=== PATIENT | female | born 1960 | race Caucasian/White ===

== ENCOUNTER 2017-04-20 21:03 | Inpatient (IN) ==
[~2017-04-20 21:03] MED LIST: *HR* Rocuronium Bromide 100 MG/10 ML VIAL IVC ONE
[2017-04-20] MEDS ORDERED: 0.9 % Sodium Chloride 1,000 ML IVC ONE (21:09)
[2017-04-20] MEDS ORDERED: *HR* Etomidate 20 MG/10 ML AMPUL IVP ONE (21:22)
[2017-04-20] MEDS ORDERED: *HR* Rocuronium Bromide 50 MG/5 ML VIAL IVP ONE (21:23)
[2017-04-20 21:41] LABS: Hematocrit 39.5 % (35.3-44.9); Hemoglobin 11.6 g/dL (11.5-15.4); Mean Corpuscular HGB Conc 29.4 g/dL (31.6-35.5); Mean Corpuscular Hemoglobin 28.6 pg (28.0-33.3); Mean Corpuscular Volume 97.3 fL (83.0-100.0); Mean Platelet Volume 12.6 fL (9.4-12.4); Platelet Count 257 K/mcL (140-400); Red Blood Count 4.06 M/mcL (3.82-4.97)
[2017-04-20 21:46] LABS: VBG HCO3 19 mEq/L (21-27); VBG PCO2 109 mmHg (41-51); VBG PH 6.85 pH Units (7.32-7.42); VBG PO2 101 mmHg (25-50)
[2017-04-20 21:49] LABS: INR 1.1; Prothrombin Time 11.3 Seconds (9.4-12.1)
[2017-04-20 21:53] LABS: Bilirubin,Urine Negative (Negative); Blood,Urine Negative (Negative); Clarity,Urine Clear (Clear); Color,Urine Yellow (Yellow); Glucose,Urine (UA) Normal (Normal); Ketones,Urine Negative (Negative); Leukocyte Esterase,Urine Negative (Negative); Nitrite,Urine Negative (Negative); PH,Urine 6.5 pH Units (5.0-8.0); Protein,Urine 30 mg/dL (Neg-Trace); Specific Gravity,Urine 1.019 (1.010-1.025); Urobilinogen,Urine Normal (Normal)
[2017-04-20 21:55] LABS: Amphetamine Screen,Urine Negative ng/mL (Cutoff=1000); Barbiturate Screen,Urine Negative ng/mL (Cutoff=200); Benzodiazepines Screen,Urine Negative ng/mL (Cutoff=200); Cannabinoid Screen,Urine Positive ng/mL (Cutoff = 50); Cocaine Screen,Urine Negative ng/mL (Cutoff= 300); Opiate Screen,Urine Positive ng/mL (Cutoff=300); Phencyclidine Screen,Urine Negative ng/mL (Cutoff=25)
[2017-04-20 21:56] LABS: Bacteria,Urine None Seen per hpf (None-Few); Hyaline Casts,Urine None Seen per lpf (None-Few); Squamous Epithelial Cell,Urine Many per lpf (None-Few); WBC,Urine 0-3 per hpf (0-3)
[2017-04-20 22:00] LABS: Alanine Aminotransferase 24 Units/L (7-52); Albumin 4.2 g/dL (3.5-5.7); Albumin/Globulin Ratio 1.6 (1.1-2.2); Alkaline Phosphatase 128 Units/L (34-104); Aspartate Amino Transferase 48 Units/L (13-39); BUN/Creatinine Ratio 19 (6-26); Bilirubin,Indirect 0.4 mg/dL (0.0-1.2); Bilirubin,Total 0.4 mg/dL (0.3-1.0); Blood Urea Nitrogen 20 mg/dL (6-20); Calcium 8.9 mg/dL (8.6-10.3); Carbon Dioxide 20 mEq/L (23-29); Chloride 102 mEq/L (98-107); Globulin 2.7 g/dL (2.4-3.5); Glucose 460 mg/dL (70-105); Lymphocytes # 9.7 K/mcL (0.6-4.6); Monocytes # 0.7 K/mcL (0.0-1.3); Neutrophils # 7.2 K/mcL (1.6-8.9); Osmolality,Calculated 303 (280-300); Potassium 4.7 mEq/L (3.5-5.1); Sodium 135 mEq/L (136-145); Total Protein 6.9 g/dL (6.4-8.9); eGFR For African Americans > 60 (> 60); eGFR For Non-African Americans 54 (> 60)
[2017-04-20] MEDS: FentaNYL (PF) 1,000 MCG in 0.9 % Sodium Chloride 80 ML IVC SCH (22:00)
[2017-04-20 22:01] LABS: Creatine Kinase 63 Units/L (30-223); Large Platelets Present (Not Present); Platelet Estimate Normal (Normal); Reactive Lymphocytes Present (Not Present)
[2017-04-20 22:06] LABS: Ethanol < 10 mg/dL (0-10)
[2017-04-20 22:30] LABS: ABG Base Excess -10 mEq/L (-2 to 3); ABG HCO3 23 mEq/L (21-27); ABG Oxygen Saturation 100 % (95-98); ABG PCO2 89 mmHg (35-45); ABG PH 7.02 pH Units (7.32-7.45); ABG PO2 332 mmHg (85-104); ABG TCO2 26 mEq/L (20-26)
[2017-04-20] MEDS ORDERED: Furosemide 40 MG/4 ML VIAL IVP ONE (23:08)
--- NOTE | 2017-04-20 23:08 | Emergency Department Note ---
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 Units/L ALT (7-52) Units/L Alkaline Phosphatase (34-104) Units/L Ammonia (16-53) mcmol/L Creatine Kinase (30-223) Units/L Troponin I (< 0.04) ng/mL B-Natriuretic Peptide (Less than 100) pg/mL Serum Total Protein (6.4-8.9) g/dL Albumin (3.5-5.7) g/dL Globulin (2.4-3.5) g/dL Albumin/Globulin Ratio (1.1-2.2) Beta-Hydroxybutyric Acd (0.02-0.27) mmol/L Urine Color (Yellow) Urine Clarity (Clear) Urine pH (5.0-8.0) pH Units Ur Specific [place] (1.010-1.025) Urine Protein (Neg-Trace) mg/dL Urine Glucose (UA) (Normal) mg/dL Urine Ketones (Negative) mg/dL Urine Blood (Negative) Urine Nitrite (Negative) Urine Bilirubin (Negative) Urine Urobilinogen (Normal) mg/dL Ur Leukocyte Esterase (Negative) Urine Microscopic RBC (0-3) per hpf Urine Microscopic WBC (0-3) per hpf Ur Squamous Epith Cells (None-Few) per lpf Urine Bacteria (None-Few) per hpf Hyaline Casts (None-Few) per lpf Ur Culture Indicated? (NO) Urine Opiates Screen (Llnazw=201) ng/mL Ur Barbiturates Screen (Vlnahs=533) ng/mL Ur Phencyclidine Scrn (Cutoff=25) ng/mL Ur Amphetamines Screen (Kifgud=7624) ng/mL U Benzodiazepines Scrn (Dtlcxw=463) ng/mL Urine Cocaine Screen (Cutoff= 300) ng/mL U Marijuana (THC) Screen (Cutoff = 50) ng/mL Ethyl Alcohol (0-10) mg/dL Person Notif of Satish CHING - Radiology Data Radiology results reviewed: Yes I reviewed the patient's radiology results. - EKG Data EKG #1 EKG attestation: Yes I reviewed and interpreted this EKG. EKG results narrative: EKG done at 2118 reviewed by myself and the attending shows sinus tachycardia at a rate of 132, CO 177, QRS 96, QTc 633 with a leftward axis. There is ST elevation with no tombstone being on leads V3 V4 and V5. There are no other reciprocal changes. There are deep Q waves most likely for an old LA. There is no acute T-wave changes. No signs of any heart strain or hypertrophy or any heart blocks. No signs of WPW/Brugada syndrome. There was no old EKG to compare with at this time. Critical Care Time Critical Care Time: Yes Total Critical Care Time: 60 Attestation: Critical care performed: Time is exclusive of separately billable procedures. Time includes: direct patient care, patient reassessment, coordination of patient care, interpretation of data (laboratory data, radiology data, and respiratory data), review of patient's medical records, medical consultation and documentation of patient care. Procedures included in critical care time: Procedures excluded from critical care time: Endotracheal intubation S.B.AGato. - Tanmay Situation: Demographics, MOA Background: Presenting Complaint, Relevant PMH, Meds, & Allergies Assessment: Vital Signs, Course and respsone to treatment, Exam Concerns, Patient/Family Expectation, Pertinant Lab Results, Outstanding Labs Recommendation: Barrier(s) to disposition, Recommendation based on pending studies, treatments, or consults S.BFabián Report Given to: , hospitalist Tanmay Repor Time: 23:35 Attestation Statement - Attestation Attestation: I, Maury Calderon MD, personally evaluated this patient and discussed their management with the resident physician. I reviewed the resident's note and agree with the documented findings, medical decision making, and plan of care. 56-year-old female presents to the emergency department by ambulance for acute onset of respiratory distress which started about 20:15 this evening shortly after patient went to bed. reports that patient was fine all day and did not have any complaints. She went to bed about 8 PM and then about a 15- year-old for him and complained that she could not get her breath. She did not complain of any chest pain. She has no prior history of any known breathing problems. No prior history of any known heart problems. EMS reports that when they arrived the patient was on her knees leaning forward over the bed complaining that she could not get her breath. Oxygen saturation was initially in the low 80s. She was placed on a nonrebreather and received a nebulizer treatment in route. She also became progressively less alert and on arrival here the patient is moaning and grunting and does not respond to verbal stimuli or follow commands. On examination patient is a well-developed well-nourished female in severe respiratory distress. She is alert but not responsive to verbal stimuli. Breath sounds are equal bilaterally with some coarse rales bilaterally and scattered bilateral expiratory wheezes but with good air movement. Heart is tachycardic and regular. Abdomen is soft with normal bowel sounds and no obvious distention. No pedal edema noted. Patient was intubated orally by Dr. Small without difficulty. Labs reviewed. Leukocytosis with no left shift. Elevated d-dimer. Troponin 0.06. VBG pH was 6.85. ABG obtained after intubation showed a pH of 7.02. CTA of the chest showed no pulmonary embolism. CHF with small pleural effusions. EKG showed anterior ST elevations in V3 V4 and V5. This was reviewed by the assistant boys track coach, Dr. Bhakta, and he felt that with deep Q waves present these were likely old changes from a previous LA. He recommended medical management at this point. (A STEMI alert was initially called based on the EMS transmitted EKG however after the EKG was reviewed by Dr. Bhakta the STEMI alert was canceled.) The hospitalist, Dr. Aldrich, was consulted and accepted admission of the patient to the ICU.
--- NOTE | 2017-04-20 23:45 | Internal Med History&Physical ---
<Dwayne Navarrete - Last Filed: 04/21/17 02:37> Date of Encounter: 04/21/17 Time of Encounter: 23:41 Assessment and Plan (1) Acute respiratory failure with hypoxia Current visit: Yes Status: Acute Patient was intubated in emergency department. Patient is currently on ARDS Net settings with a PEEP of 15. She is on 6 mL/kg tidal volumes. The patient is currently sedated using fentanyl. We will perform sputum culture on patient. We will continue to monitor patient's respiratory status. (2) Acute respiratory acidosis Current visit: Yes Status: Acute Continued improvement of respiratory status according to ABG versus VBG obtained once patient was intubated. Patient was initially 6.85 which is improved to 7.02. There is likely some component of metabolic acidosis associated with lactic acid elevation. Patient will be continued to be intubated with respiratory monitoring. (3) Acute CHF Current visit: Yes Status: Acute Patient has no previous history of congestive heart failure. The patient has bilateral pleural effusions consistent with pulmonary edema. Bedside ultrasound reveals hyperkinetic heart beat. We will obtain formal echocardiogram for further evaluation of cardiac status. Patient was administered 1 dose of diuretic in the emergency department to attempt to diurese intrapulmonary fluid. Patient has been tolerating diuresis. Patient's blood pressures have remained stable without any demonstration of hypotension. Patient remains tachycardic which is likely associated with depletion of intravascular fluids. We will continue IV maintenance fluids without bolus to prevent worsening of pulmonary edema. Patient is currently on 15 mm of PEEP. We will place a cardiology consult to be seen. Qualifiers: Congestive heart failure type: combined Qualified Code(s): I50.41 - Acute combined systolic (congestive) and diastolic (congestive) heart failure (4) Hypotension Current visit: Yes Status: Acute The patient became hypotensive in the ICU. A right femoral CVC was placed. The patient was started on phenylephrine initially which was changed to norepinephrine subsequently. Titration orders in place. The patient was also administered IV fluids to help supplement what appears to be intravascular depletion noted on bedside ultrasound of the IVC. The patient received IV fluid bolus followed by maintenance fluids. The patient's PEEP was subsequently lowered as well to 10. Qualifiers: Hypotension type: unspecified hypotension type Qualified Code(s): I95.9 - Hypotension, unspecified (5) Pulmonary edema Current visit: Yes Status: Acute Qualifiers: Chronicity: acute Qualified Code(s): J81.0 - Acute pulmonary edema (6) Tachycardia Current visit: Yes Status: Acute Tachycardia likely associated with intravascular depletion of fluid. We will continue IV maintenance fluids. She will be continued on PEEP of 15. We will begin the patient on levofloxacin and vancomycin as a prophylaxis. Sputum culture was obtained, Streptococcus and Legionella antigen were obtained , flu swab also obtained. (7) Altered mental status Current visit: Yes Status: Acute Qualifiers: Altered mental status type: stupor Qualified Code(s): R40.1 - Stupor (8) Lactic acid acidosis Current visit: Yes Status: Acute (9) Hyperglycemia Current visit: Yes Status: Acute Patient is an over previous history of diabetes. This is likely reactionary associated with illness. The patient is acidotic but diminished no ketones. Internal Medicine - H&P: HPI Chief complaint: Respiratory distress Admitted From: Home Plans for Post Hospital Care: Home History of present illness: Ms. 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 emergency department after the patient began experiencing difficulty breathing. According to the history from the the patient went to bed at roughly 8 PM this evening she awoke at roughly 8:15 820 stating that she could not catch her breath. The patient states that she was on the ground having difficulty breathing. EMS was notified at that time. EMS arrived to the emergency department stating that the patient had initial O2 saturation of 80% on room air. She was placed on 15 L nonrebreather. She quickly jake to the mid 90s. Upon arrival to the emergency department the physician noted that the patient was only responsive to pain stimuli. The patient was not following any commands. In addition her pulse oximetry was not improving. The patient also was tachycardic. It was elected at that time that the patient was intubated. Labs were drawn and the patient was taken to CT scan. Labs demonstrated an elevated d-dimer so a CTA of the patient's chest as well as a CT abdomen and pelvis was obtained. CTA of the patient's chest demonstrated bilateral pleural effusions consistent with edema. No other gross abnormality noted. Please see note from radiologist for impression and results of CT scan with further detail. The patient remained slightly tachycardic and blood pressure remained stable. After talking to the patient's he states that the patient has had some intermittent cough and dyspnea over the course the past month which they attributed to an upper respiratory infection. The patient has had no recent fevers, recent illness other than mentioned previously, or any other complaints over the course of the past month. The patient was noted to have some intermittent chest pain over the course of the past few weeks as well. The states that the patient has no previous history of CA or cardiac disease. In addition upon arrival to the emergency Department EKG was noted for concern for possible STEMI. A STEMI alert was called and after emergency department physician spoke with interventional cardiology, they did not feel as though this was an acute CA. They felt that the patient had large Q waves associated with previous CA. They recommended medical management at this time. The patient's troponin was mildly elevated at 0.06. The patient is currently on the ventilator on ARDS Net settings. 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 in bilateral upper extremities on the anterior aspect of the forearm.) - Social History Smoking Status: Current every day smoker Smokeless Tobacco Status: No Alcohol use: none Drug use: none Current living situation: Home, With Family Activity Level: Independent ambulation Recent Out of Country Travel Within the Last 8 Weeks: No Internal Medicine - H&P: Meds Carbidopa/Levodopa [Carbidopa-Levodopa 10-100 Tab] 1 tab PO TID 04/20/17 [ History] Gabapentin [Neurontin] 1,200 mg PO TID 04/20/17 [History] Nicotine Patch [Nicoderm] 21 mg TD DAILY 04/20/17 [History] Omeprazole [PriLOSEC] 20 mg PO DAILY 04/20/17 [History] OxyCODONE Immed Rel [Roxicodone 10 MG] 10 mg PO TID PRN 04/20/17 [History] 3 Allergy/AdvReac Type Severity Reaction Status Date / Time No Known Allergies Allergy Verified 01/29/15 08:11 ROS unobtainable: due to endotracheal tube All Systems PM: A 10-system review of systems was performed and is negative for pertinent findings except as documented above in the HPI. - Constitutional Vitals: Temp Pulse Resp BP Pulse Ox 99.4 F 128 20 108/71 96 04/20/17 21:06 04/20/17 23:28 04/20/17 23:28 04/20/17 23:28 04/20/17 23:28 Exam: Patient is intubated and sedated at this time. - Head Head exam: Present: atraumatic, normocephalic - Eye Eye exam: Present: PERRL. Absent: sclera anicteric - ENT ENT exam: Present: mucous membranes moist - Neck Neck exam general surgery: Present: normal inspection, trachea midline. Absent : lymphadenopathy - Respiratory Additional comments: Course breath sounds bilaterally. Mild rales noted in bilateral lower lobes. - Cardiovascular Cardiovascular exam: Present: +S1, +S2, tachycardia. Absent: clicks, gallop, rubs - GI/Abdominal GI/Abdominal exam: Present: soft. Absent: distended, firm, mass, pulsatile mass , rigid - Extremities Exam Extremities exam: Present: warm, radial pulses palpable and symmetrical. Absent : calf tenderness, cyanotic, pedal edema Additional comments: Skin grafts noted bilateral anterior forearms. Well-healed. No gross abnormality. - Neurological Exam Additional comments: Patient is currently intubated and sedated. - Skin Skin exam: Present: dry, intact Internal Med - H&P Results - Labs CBC & Chem 7: 04/20/17 21:30 04/20/17 21:30 Labs: Short CBC 04/20/17 Range/Units 21:30 WBC 18.0 H (4.3-11.1) K/mcL Hgb 11.6 (11.5-15.4) g/dL Hct 39.5 (35.3-44.9) % Plt Count 257 (140-400) K/mcL Neutrophils # 7.2 (1.6-8.9) K/mcL BMP 04/20/17 21:30 Sodium 135 L Potassium 4.7 Chloride 102 Carbon Dioxide 20 L BUN 20 Creatinine 1.05 Glucose 460 H Calcium 8.9 Cardiac Enzymes 04/20/17 Range/Units 21:30 Troponin I 0.06 H* (< 0.04) ng/mL Liver Function 04/20/17 Range/Units 21:30 Total Bilirubin 0.4 (0.3-1.0) mg/dL Direct Bilirubin 0.0 (0.0-0.2) mg/dL AST 48 H (13-39) Units/L ALT 24 (7-52) Units/L Alkaline Phosphatase 128 H (34-104) Units/L Albumin 4.2 (3.5-5.7) g/dL Urine 04/20/17 Range/Units 21:43 Urine Color Yellow (Yellow) Urine Clarity Clear (Clear) Urine pH 6.5 (5.0-8.0) pH Units Ur Specific [place] 1.019 (1.010-1.025) Urine Protein 30 H (Neg-Trace) mg/dL Urine Glucose (UA) Normal (Normal) mg/dL - ABG Interpretation ABG results: 04/20/17 04/20/17 21:41 22:18 ABG pH 7.02 L* ABG pCO2 89 H* ABG pO2 332 H ABG HCO3 23 ABG Total CO2 26 ABG O2 Saturation 100 H ABG Base Excess -10 L VBG pH 6.85 L* VBG pCO2 109 H* VBG pO2 101 H VBG HCO3 19 L Interpretation: respiratory acidosis - Impressions ITS Impressions Chest X-Ray 04/20/17 21:09 IMPRESSION: 1. Endotracheal tube present with tip projecting 7 cm from the steve. Recommend retraction by approximately 1.5 cm. 2. Cardiomegaly with central pulmonary vascular congestion and bilateral interstitial opacities likely reflecting edema. D/ / Yash Mcmillan MD / Yash Mcmillan MD Interpreting Provider: Yash Mcmillan MD Head CT 04/20/17 21:10 IMPRESSION: No acute intracranial abnormality. D/ / Woo Goodman MD / Woo Goodman MD Interpreting Provider: Woo Goodman MD Chest CTA 04/20/17 21:14 IMPRESSION: 1. No evidence of pulmonary embolic disease. 2. Findings most consistent with CHF and interstitial pulmonary edema with small bilateral effusions, interlobular septal thickening and patchy ground-glass opacification throughout the lungs. Cardiomegaly with atherosclerotic calcification in the coronary circulation. 3. Bibasilar atelectasis. 4. Nonspecific periportal edema. This can be seen with resuscitation and CHF. 5. Striated nephrogram bilaterally, most often associated with ATN. No obstruction. 6. No evidence of bowel obstruction. Moderate colonic distention proximally with retained stool. D/ / 04/20/2017 22:55:23 Emanuel Barnes MD / gemini Interpreting Provider: Emanuel Barnes MD Abdomen/Pelvis CT 04/20/17 21:50 IMPRESSION: 1. No evidence of pulmonary embolic disease. 2. Findings most consistent with CHF and interstitial pulmonary edema with small bilateral effusions, interlobular septal thickening and patchy ground-glass opacification throughout the lungs. Cardiomegaly with atherosclerotic calcification in the coronary circulation. 3. Bibasilar atelectasis. 4. Nonspecific periportal edema. This can be seen with resuscitation and CHF. 5. Striated nephrogram bilaterally, most often associated with ATN. No obstruction. 6. No evidence of bowel obstruction. Moderate colonic distention proximally with retained stool. D/ / 04/20/2017 22:55:23 Emanuel Barnes MD / gemini Interpreting Provider: Emanuel Barnes MD - Attending Attestation I examined this patient and my medical decision-making was reviewed with the Resident Physician. I agree with the documented findings, disposition and treatment plan as described except to the extent set forth below. <To Renteria - Last Filed: 04/21/17 03:55> Date of Encounter: 04/21/17 Time of Encounter: 02:00 ROS unobtainable: due to endotracheal tube - Constitutional Vitals: Temp Pulse Resp BP Pulse Ox 97.9 F 107 17 105/77 100 04/21/17 01:00 04/21/17 03:00 04/21/17 03:00 04/21/17 03:00 04/21/17 03:00 Exam: Intubated and sedated; arousable and pulling at tubes/lines when sedation wears off; patient follows commands when off sedation - Head Head exam: Present: atraumatic - Eye Eye exam: Present: PERRL. Absent: scleral icterus - ENT ENT exam: Present: mucous membranes moist, normal exam Additional comments: ETT in place - Neck Neck exam general surgery: Present: full ROM, normal inspection, supple - Respiratory Respiratory exam: Present: prolonged expiratory phase, respiratory distress, rhonchi, wheezes, tachypnea. Absent: chest wall tenderness - Cardiovascular Cardiovascular exam: Present: distant heart sounds, RRR, +S1, +S2, tachycardia. Absent: diastolic murmur, JVD, systolic murmur - GI/Abdominal GI/Abdominal exam: Present: soft. Absent: guarding, hepatomegaly, mass, splenomegaly, tenderness - Extremities Exam Extremities exam: Present: full ROM, warm. Absent: calf tenderness, cyanotic, pedal edema, tenderness - Neurological Exam Additional comments: sedated; responds appropriately once sedation wears off - Skin Skin exam: Present: dry, warm. Absent: rash Internal Med - H&P Results - Labs CBC & Chem 7: 04/20/17 21:30 04/20/17 21:30 - ABG Interpretation Interpretation: ABG interpreted by me Interpretation: respiratory acidosis - Diagnostic Studies Chest x-ray Status: image reviewed by me (cardiomegaly and diffuse pulmonary edema noted) - Attending Attestation I discussed the patient VENETIE IRA, PMH, ROS, lab data, and exam findings with Dr. Navarrete. I then saw and examined patient independently as well. Patient remains critically ill. Upon initial review of her labs and history, I was concerned about pneumonia with sepsis. However, after examining patient, viewing her CXR, and again reviewing her labs, I agree with Dr. Navarrete that patient likely has acute CHF with resultant respiratory failure. Nonetheless, we will treat her for possible pneumonia with IV antibiotics, blood cultures, and mechanical ventilation. She initially received IVF for BP support, but I suspect her hypotension was secondary to IV sedation. Once patient was more awake, her BP normalized. Repeat lactate was normal. We will try to diurese her now that BP is stabilized. Formal ECHO will be performed this morning and cardiology will be consulted as well as Pulmonary for ICU management. In addition to diuresis, IV antibiotics, and mechanical ventilation, we will support her with nebulized breathing treatments and IV steroids. Given her ability to oxygenate easily and elevated PO2 on ABG, I am not convinced she has ARDS. However, she could easily go into ARDS given her acute respiratory process. We will treat with antibiotics for possible pneumonia and we'll check for influenza as well. Patient remains critically ill and will need ongoing critical care support as noted above. A total of 55 minutes critical care time thus far assessing patient, coordinating care with Dr. Navarreet, reviewing labs, X-rays, and medical decision making. Other than my comments above and noted exam findings, I agree with Dr. Navarrete's assessment and plan.
[2017-04-21] MEDS ORDERED: *HR* Midazolam HCl 2 MG/2 ML VIAL IVP ONE (00:24)
[2017-04-21] MEDS ORDERED: *HR* Midazolam HCl 2 MG/2 ML VIAL ONE (00:25)
[2017-04-21] MEDS ORDERED: Dexmedetomidine HCl 400 MCG/100 ML MLS IVC ONE (01:02)
[2017-04-21] MEDS ORDERED: D5% in Water 1,000 ML IVC PRN (01:06)
[2017-04-21] MEDS ORDERED: *HR* Dextrose 50 % in Water (Syg) 50 ML SYRINGE IVP PRN (01:06)
[2017-04-21] MEDS ORDERED: Dextrose Gel 15 GM/37.5 ML TUBE PO PRN ×2 (01:06)
[2017-04-21] MEDS: Dexmedetomidine HCl 400 MCG/100 ML MLS IVC SCH ×3 (01:10→22:19)
[2017-04-21] MEDS ORDERED: 0.9 % Sodium Chloride 500 ML IVC ONE (01:16)
[2017-04-21] MEDS ORDERED: Phenylephrine 10 MG in D5% in Water 250 ML IVC SCH (01:30)
[2017-04-21] MEDS: 0.9 % Sodium Chloride 1,000 ML IVC SCH ×2 (02:30→05:37)
[2017-04-21] MEDS ORDERED: Vancomycin 1,000 MG in D5% in Water 250 ML IVPB ONE (02:34)
[2017-04-21] MEDS ORDERED: Potassium Chloride 40 MEQ/200 ML BAG IVPB PRN (02:35)
--- NOTE | 2017-04-21 02:43 | Procedure Note ---
<Dwayne Navarrete - Last Filed: 04/21/17 02:40> Date of procedure: 04/21/17 Pre-op diagnosis: Hypotension Post-op diagnosis: same Procedure: Right femoral CVC: The patient was positioned in correct fashion. The patient was cleaned using ChloraPrep. Patient was draped in normal fashion. Under ultrasound guidance a right femoral CVC was placed. This was a triple lumen. Wire was visualized with in vein. CBC catheter was placed without difficulty. All 3 lines were flushed and were able to draw blood. Central line was sutured in place with Biopatch. Dressing placed and dated. Patient tolerated procedure well. 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 He was able to successfully aspirate and canulate the femoral vein on the first attempt.
[2017-04-21] MEDS: Norepinephrine 4 MG in D5% in Water 250 ML IVC SCH ×2 (03:20→10:26)
[2017-04-21 03:55] LABS: Basophils # 0.1 K/mcL (0.0-0.2); Basophils % 0.2 %; Hematocrit 35.1 % (35.3-44.9); Immature Granulocytes % 0.6 % (0-4); Immature Platelets 9.2 % (1.1-6.1); Lymphocytes # 0.5 K/mcL (0.6-4.6); Lymphocytes % 2.6 %; Mean Corpuscular HGB Conc 31.3 g/dL (31.6-35.5); Mean Corpuscular Hemoglobin 29.1 pg (28.0-33.3); Mean Corpuscular Volume 92.9 fL (83.0-100.0); Mean Platelet Volume 11.1 fL (9.4-12.4); Monocytes # 1.5 K/mcL (0.0-1.3); Monocytes % 7.6 %; Neutrophils # 17.8 K/mcL (1.6-8.9); Platelet Count 235 K/mcL (140-400); Red Blood Count 3.78 M/mcL (3.82-4.97); Red Cell Distribution Width 14.5 % (11.5-14.5)
[2017-04-21 04:12] LABS: Calcium 7.8 mg/dL (8.6-10.3); Potassium 4.5 mEq/L (3.5-5.1)
[2017-04-21 04:27] LABS: ABG Base Excess 1 mEq/L (-2 to 3); ABG HCO3 26 mEq/L (21-27); ABG Oxygen Saturation 99 % (95-98); ABG PCO2 45 mmHg (35-45); ABG PH 7.38 pH Units (7.32-7.45); ABG PO2 129 mmHg (85-104); ABG TCO2 28 mEq/L (20-26); Blood Gas Modality PRVC; Blood Gas PEEP 10 cm H2O; Blood Gas Respiration Rate 16; Blood Gas VT 380 cc
[2017-04-21 04:33] LABS: 2009 H1N1 PCR NOT DETECTED (Not Detect); Influenza A PCR Negative (Negative); Influenza B PCR Negative (Negative)
[2017-04-21] MEDS ORDERED: *HR* Heparin 5,000 UNIT/ML VIAL IVP ONE (04:54)
[2017-04-21] MEDS ORDERED: *HR* Heparin 5,000 UNIT/ML VIAL IVP PRN ×2 (04:54)
[2017-04-21] MEDS ORDERED: Heparin 25,000 UNIT/500 ML D5W 25,000 UNIT/500 ML BAG IVC SCH (05:00)
[2017-04-21 05:08] LABS: Magnesium 2.1 mg/dL (1.6-2.6)
[2017-04-21 05:26] LABS: INR 1.1; Prothrombin Time 12.2 Seconds (9.4-12.1)
[2017-04-21 05:29] LABS: Activated Partial Thrombo Time 25.9 Seconds (26.0-36.0)
[2017-04-21] MEDS: Insulin LISPRO 300 UNITS/3 ML VIAL SQ SCH ×4 (05:59→23:50)
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
[2017-04-21] MEDS: Levofloxacin 750 MG/150 ML 750 MG/150 ML BAG IVPB SCH (08:38)
[2017-04-21] MEDS: methylPREDNISolone 125 MG/2 ML VIAL IVP SCH ×3 (08:38→23:49)
[2017-04-21] MEDS ORDERED: Perflutren Lipid Microsphere 1.3 ML in 0.9 % Sodium Chloride 8.7 ML IVP ONE (10:26)
--- NOTE | 2017-04-21 10:43 | Cardiology Consult Note ---
Date of Encounter: 04/21/17 Time of Encounter: 10:41 Assessment and Plan (1) CHF (congestive heart failure) Current Visit: Yes Status: Acute Patient's electrocardiogram reveals an age indeterminate myocardial infarction as the patient has deep Q waves in the anteroseptal leads. The patient has had worsening shortness of breath over the last few weeks, so I suspect that the myocardial infarction occurred within the last month. The patient's echocardiogram reveals a reduced left ventricular ejection fraction 25%. There is decreased systolic function. CTA of the chest reveals bilateral pleural effusions. Patient is currently intubated. Lung exam reveals bilateral rhonchi. Initial troponin was 0.06. Repeat troponin is 0.86. The patient does have a BNP of 3472. No known previous history of congestive heart failure. Currently, we will plan to proceed with heart catheterization tomorrow as we want this patient's pulmonary function to be optimized. Patient was diuresed with 40 mg of Lasix. Patient will be given Brilinta. Plan was discussed with at bedside as well as patient. Qualifiers: Congestive heart failure type: systolic Congestive heart failure chronicity : acute Qualified Code(s): I50.21 - Acute systolic (congestive) heart failure (2) Elevated troponin Current Visit: Yes Status: Acute Patient is currently on dual antiplatelet therapy and on low-dose heparin via ACS protocol. Heart catheterization tomorrow. (3) Myocardial infarction Current Visit: Yes Status: Acute Age indeterminate myocardial infarction. See above Qualifiers: Discussion w patient/family: The assessment and plan as outlined above was discussed with the patient and/or family members who expressed understanding and agreement. All questions were answered. Thank you for involving us in the care of your patient. Please call with any questions. History of Present Illness Consult date: 04/21/17 Requesting physician: Dwayne Navarrete Chief complaint: PACO History of present illness: Ms. Humphrey is a 56 year old female past medical history of smoking who presented to the emergency department last night after having shortness of breath. She was taken to the emergency department via EMS and oxygen saturation was in the 80s. Patient's reports that patient has been getting more short of breath on exertion over the last few weeks. He has noticed that she is more short of breath when lying flat. Patient did complain of one episode of chest pain last night per her , but patient states that she has not had any chest pain. This was corrected by placing patient on a nonrebreather. There was concern for patient to not be responsive to painful stimuli, so the decision to place the endotracheal tube was made. Patient's initial blood gas revealed hypercarbic respiratory acidosis. Patient received a CTA of the chest which revealed bilateral pleural effusions. Chest x-ray revealed cardiomegaly. Review of systems was limited as patient cannot conversate as she currently has an endotracheal tube placed. Past Med Surg Social Fam HX - Past Medical History Medical history: GERD, other Psychiatric history: no psych history - Past Surgical History Surgical History: other - Social History Smoking Status: Current every day smoker Smokeless Tobacco Status: No Alcohol use: none Drug use: none Medications and Allergies Carbidopa/Levodopa [Carbidopa-Levodopa 10-100 Tab] 1 tab PO TID 04/20/17 [ History] Gabapentin [Neurontin] 1,200 mg PO TID 04/20/17 [History] Nicotine Patch [Nicoderm] 21 mg TD DAILY 04/20/17 [History] Omeprazole [PriLOSEC] 20 mg PO DAILY 04/20/17 [History] OxyCODONE Immed Rel [Roxicodone 10 MG] 10 mg PO TID PRN 04/20/17 [History] 3 Allergy/AdvReac Type Severity Reaction Status Date / Time No Known Allergies Allergy Verified 01/29/15 08:11 ROS unobtainable: due to endotracheal tube All Systems Review: A 10-system review of systems was performed and is negative for pertinent findings except as documented above in the HPI. - Constitutional Constitutional: no fever(s) - Cardiovascular Cardiovascular: chest pain at rest, dyspnea at rest, dyspnea on exertion, orthopnea, paroxysmal nocturnal dyspnea, no leg edema - Respiratory Respiratory: dyspnea, no cough, no hemoptysis - Gastrointestinal Gastrointestinal: no abdominal pain, no coffee ground emesis, no hematemesis, no hematochezia - Integumentary Integumentary: no rash - Hematological/Lymphatic Hematologic/Lymphatic: no easy bleeding Physical Examination Vital Signs, Last 4 Hours Temp Pulse Resp BP Pulse Ox 04/21/17 10:00 82 18 92/80 100 04/21/17 09:13 78 16 84/65 100 04/21/17 08:00 97.8 F 87 16 99/58 100 04/21/17 07:41 16 100 04/21/17 07:00 86 16 94/73 100 General: No Apparent Distress, Other (Intubated but responsive and communicates with head movements. Patient is alert) HEENT: Atraumatic, Normocephaly Neck: No JVD Cardiac: Reg Rate and Rhythm, No Murmur Lungs: Other (diffuse rhonchi and rales) Neuro: Alert and responsive Abdomen: Soft Skin: No rashes noted on visualized skin Musculoskeletal: No Chest Wall Tenderness Extremities: No Edema, Normal Pulses Results 04/21/17 03:45 04/21/17 03:45 Lab Results 04/21/17 04/21/17 04/21/17 03:45 03:45 03:45 WBC 20.1 H Hgb 11.0 L Hct 35.1 L Plt Count 235 INR APTT Sodium 139 Potassium 4.5 Chloride 108 H Carbon Dioxide 25 BUN 22 H Creatinine 1.19 Glucose 109 H Calcium 7.8 L Magnesium 2.1 Troponin I 0.86 H* 04/21/17 05:10 WBC Hgb Hct Plt Count INR 1.1 APTT 25.9 L Sodium Potassium Chloride Carbon Dioxide BUN Creatinine Glucose Calcium Magnesium Troponin I Consult Discharge Plan - Plan Referrals: Griselda Richey, INSURANCE CLAIMS EXAMINER [Primary Care Provider] -
[2017-04-21] MEDS ORDERED: *HR* Ticagrelor 90 MG TABLET PO ONE (12:08)
--- NOTE | 2017-04-21 12:34 | Electrocardiograph Report ---
[address] [place], [place] [address] Test Date: 2017-04-20 Pat Name: Michelle Humphrey Department: 104 Room: [facility] Gender: F Direct Mail Manager: : 1960 Requested By: Joon Small Order Number: [id number] Reading MD: Omid Bhakta MD Measurements Intervals [place] Rate: 132 P: ND: 0 QRS: -64 QRSD: 97 T: 90 QT: 264 QTc: 342 Interpretive Statements SINUS TACHYCARDIA LEFT ANTERIOR FASCICULAR BLOCK ANTEROSEPTAL MYOCARDIAL INFARCTION, POSSIBLY ACUTE Electronically Signed On 04-21-2017 12:32:46 EST by Omid Bhakta MD
--- NOTE | 2017-04-21 13:28 | Electrocardiograph Report ---
[address] [place], [place] [address] Test Date: 2017-04-21 Pat Name: Michelle Humphrey Department: 109 Room: PSYCHIATRIC Gender: F Human Resources Professional: : 1960 Requested By: Dwayne Navarrete Order Number: [id number] Reading MD: Adry Walton Measurements Intervals [place] Rate: 90 P: 18 CT: 177 QRS: -42 QRSD: 86 T: 66 QT: 359 QTc: 406 Interpretive Statements SINUS RHYTHM WITH OCCASIONAL SUPRAVENTRICULAR PREMATURE COMPLEXES LEFT AXIS DEVIATION ANTEROSEPTAL MYOCARDIAL INFARCTION, OF INDETERMINATE AGE Electronically Signed On 04-21-2017 13:26:10 EST by Adry Walton
[2017-04-21] MEDS: Metoprolol XL (24 HR) Succ 25 MG TAB.ER.24H PO SCH (15:51)
[2017-04-21] MEDS: Furosemide 40 MG/4 ML VIAL IVP SCH (15:59)
[2017-04-21 17:15] LABS: ABG Base Excess 0 mEq/L (-2 to 3); ABG HCO3 25 mEq/L (21-27); ABG Oxygen Saturation 96 % (95-98); ABG PCO2 43 mmHg (35-45); ABG PH 7.37 pH Units (7.32-7.45); ABG PO2 86 mmHg (85-104); ABG TCO2 26 mEq/L (20-26)
[2017-04-21] MEDS: FentaNYL (PF) 1,000 MCG in 0.9 % Sodium Chloride 80 ML IVC SCH (17:58)
[2017-04-21 19:40] LABS: Activated Partial Thrombo Time 162.5 Seconds (26.0-36.0)
[2017-04-21 20:01] LABS: Heparin anti-factor XA UFH 1.06 IU/mL (0.30-0.70)
[2017-04-21] MEDS ORDERED: *HR* Ticagrelor 90 MG TABLET PO SCH (21:00)
[2017-04-22 02:48] LABS: BUN/Creatinine Ratio 22 (6-26); Blood Urea Nitrogen 22 mg/dL (6-20); Calcium 8.7 mg/dL (8.6-10.3); Carbon Dioxide 27 mEq/L (23-29); Chloride 103 mEq/L (98-107); Glucose 127 mg/dL (70-105); Osmolality,Calculated 287 (280-300); Potassium 3.8 mEq/L (3.5-5.1); Sodium 136 mEq/L (136-145); eGFR For African Americans > 60 (> 60); eGFR For Non-African Americans 56 (> 60)
[2017-04-22] MEDS: FentaNYL (PF) 1,000 MCG in 0.9 % Sodium Chloride 80 ML IVC SCH ×3 (04:01→14:03)
[2017-04-22] MEDS: Dexmedetomidine HCl 400 MCG/100 ML MLS IVC SCH ×2 (06:35→16:34)
[2017-04-22] MEDS: methylPREDNISolone 125 MG/2 ML VIAL IVP SCH (08:19)
[2017-04-22] MEDS: Metoprolol XL (24 HR) Succ 25 MG TAB.ER.24H PO SCH (08:20)
[2017-04-22] MEDS: Furosemide 40 MG/4 ML VIAL IVP SCH (08:20)
[2017-04-22] MEDS ORDERED: *HR* Midazolam HCl 2 MG/2 ML VIAL IVP PRN (08:21)
[2017-04-22] MEDS: Insulin LISPRO 300 UNITS/3 ML VIAL SQ SCH ×2 (08:24→12:16)
[2017-04-22] MEDS: Levofloxacin 750 MG/150 ML 750 MG/150 ML BAG IVPB SCH (08:24)
[2017-04-22] MEDS ORDERED: *HR* Heparin 5,000 UNIT/ML VIAL IVP PRN ×4 (08:27→17:26)
[2017-04-22] MEDS ORDERED: Heparin 25,000 UNIT/500 ML D5W 25,000 UNIT/500 ML BAG IVC SCH ×2 (08:30→20:30)
[2017-04-22] MEDS ORDERED: Chlorhexidine Rinse 15 ML MOUTHWASH MM SCH (09:00)
[2017-04-22] MEDS ORDERED: Aspirin 81 MG TAB.CHEW PO SCH (09:00)
[2017-04-22] MEDS ORDERED: *HR* Ticagrelor 90 MG TABLET PO SCH (09:00)
[2017-04-22 09:33] LABS: Chol/HDL Ratio 3.4 (0-4.9)
[2017-04-22] MEDS ORDERED: Pantoprazole 40 MG in 0.9 % Sodium Chloride Mini Bag 100 ML IVC SCH (10:45)
--- NOTE | 2017-04-22 11:33 | Pulmonology Progress Note ---
<Johann Cui - Last Filed: 04/22/17 13:45> Date of Encounter: 04/22/17 Time of Encounter: 09:15 Assessment and Plan (2) Elevated troponin Status: Acute Initial troponin was 0.06. Initial concern was for STEMI. Subsequent troponin is 0.86. Cardiology is on board; patient is scheduled for left heart catheterization today. (3) Acute respiratory acidosis Status: Acute Patient's initial ABG demonstrated pH of 6.25. Improved to 7.37. -Patient is currently intubated; respiratory monitoring. -Patient is scheduled for left heart catheterization. -Discontinued steroids. (4) Acute respiratory failure with hypoxia Status: Acute Patient initially presented with shortness of breath and low O2 saturation. -Was intubated in the emergency department. -Appeared to be very uncomfortable this morning due to intubation. -Patient was placed on a Versed drip. -Improved afterwards. (5) Acute CHF Status: Acute Patient has a known history of congestive heart failure. -Imaging demonstrates bilateral pleural effusions consistent with pulmonary edema. -Patient was given 1 dose of Lasix in the emergency department. -Repeat chest x-ray shows improvement in pulmonary congestion. -She was scheduled for left heart catheterization today. Qualifiers: Congestive heart failure type: combined Qualified Code(s): I50.41 - Acute combined systolic (congestive) and diastolic (congestive) heart failure (6) Pulmonary edema Status: Acute Chest x-ray to misread the presence of pulmonary edema. Patient received 1 dose of IV Lasix in the emergency department. Subsequent chest x-ray demonstrated some improvement. CTA demonstrated the following: -No evidence of pulmonary embolic disease. -Findings most consistent with CHF and interstitial pulmonary edema with small bilateral effusions, interlobular septal thickening and patchy ground-glass opacification throughout the lungs. Cardiomegaly with atherosclerotic calcification in the coronary circulation. -Bibasilar atelectasis. -Nonspecific periportal edema. This can be seen with resuscitation and CHF. -Striated nephrogram bilaterally, most often associated with ATN. No obstruction. -No evidence of bowel obstruction. Moderate colonic distention proximally with retained stool. Repeat chest x-ray will be ordered today. Qualifiers: Chronicity: acute Qualified Code(s): J81.0 - Acute pulmonary edema (7) Hypotension Status: Acute Initially presented with a blood pressure 95/60. Last blood pressure was 110/67. Right femoral CVC was placed. Patient was placed on phenylephrine initially which was changed to norepinephrine. IV fluids have been discontinued. Qualifiers: Hypotension type: unspecified hypotension type Qualified Code(s): I95.9 - Hypotension, unspecified (8) Tachycardia Status: Acute Patient initially presented with an elevated heart rate in 114 bpm. Likely associated with intravascular depletion. Resolved; last pulse was 71 bpm. Subjective Interval history: Patient was not examined because of this morning. Patient appears anxious; has been anxious all morning. Does not appear to have any pain. This is scheduled for left heart catheter today. Objective PUL Vital signs: Last Vital Signs Temp 97.1 F L 04/22/17 08:48 Pulse 13 04/22/17 10:00 Resp 13 04/22/17 10:00 BP 112/64 04/22/17 10:00 Pulse Ox 96 04/22/17 10:00 General appearance: appears uncomfortable Eyes: nonicteric ENT: oropharynx moist Auscultation: bilateral: wheezes, rales, rhonchi Cardiovascular: regular rate and rhythm Musculoskeletal: no deformities anxious Ventilator Settings Ventilator Settings: Ventilator Settings, Last 8 Hours Ventilator Mode VC+ Ventilator Mode VC+ Ventilator Mode CPAP Ventilator Mode CPAP Ventilator Mode VC+ Ventilator Mode VC+ Ventilator Mode VC+ Ventilator Mode VC+ Ventilator Mode VC+ Ventilator Mode VC+ Ventilator Tidal Volume 450 Setting Ventilator Tidal Volume 450 Setting Ventilator Tidal Volume 450 Setting Ventilator Tidal Volume 450 Setting Ventilator Tidal Volume 450 Setting Ventilator Tidal Volume 450 Setting Ventilator Tidal Volume 450 Setting Ventilator Tidal Volume 450 Setting Ventilator Tidal Volume 450 Setting Ventilator Tidal Volume 450 Setting Ventilator Respiratory Rate 12 Setting Ventilator Respiratory Rate 12 Setting Ventilator Respiratory Rate 12 Setting Ventilator Respiratory Rate 12 Setting Ventilator Respiratory Rate 12 Setting Ventilator Respiratory Rate 12 Setting Ventilator Respiratory Rate 12 Setting Ventilator Respiratory Rate 12 Setting Ventilator Respiratory Rate 12 Setting Ventilator Respiratory Rate 12 Setting Actual Respiratory Rate 12 Actual Respiratory Rate 12 Actual Respiratory Rate 12 Actual Respiratory Rate 12 Actual Respiratory Rate 12 Actual Respiratory Rate 16 Actual Respiratory Rate 12 Actual Respiratory Rate 12 Actual Respiratory Rate 12 Actual Respiratory Rate 12 Positive End Expiratory 5 Pressure Positive End Expiratory 5 Pressure Positive End Expiratory 5 Pressure Positive End Expiratory 5 Pressure Positive End Expiratory 5 Pressure Positive End Expiratory 5 Pressure Positive End Expiratory 5 Pressure Positive End Expiratory 5 Pressure Positive End Expiratory 5 Pressure Positive End Expiratory 5 Pressure Peak Inspiratory Airway 37 Pressure Peak Inspiratory Airway 37 Pressure Peak Inspiratory Airway 37 Pressure Peak Inspiratory Airway 37 Pressure Peak Inspiratory Airway 37 Pressure Peak Inspiratory Airway 35 Pressure Peak Inspiratory Airway 37 Pressure Peak Inspiratory Airway 30 Pressure Peak Inspiratory Airway 30 Pressure Peak Inspiratory Airway 27 Pressure Results - Laboratory Findings CBC and BMP: 04/21/17 03:45 04/22/17 02:25 ABG ABG pH 7.37 pH Units (7.32-7.45) 04/21/17 17:12 ABG pCO2 43 mmHg (35-45) 04/21/17 17:12 ABG pO2 86 mmHg (85-104) 04/21/17 17:12 ABG O2 Saturation 96 % (95-98) 04/21/17 17:12 PT/INR, D-dimer PT 12.2 Seconds (9.4-12.1) H 04/21/17 05:10 D-Dimer 5301 ng/mLFEU (0-500) H 04/20/17 21:30 Abnormal lab findings: Abnormal lab results WBC 20.1 K/mcL (4.3-11.1) H 04/21/17 03:45 RBC 3.78 M/mcL (3.82-4.97) L 04/21/17 03:45 Hgb 11.0 g/dL (11.5-15.4) L 04/21/17 03:45 Hct 35.1 % (35.3-44.9) L 04/21/17 03:45 MCHC 31.3 g/dL (31.6-35.5) L 04/21/17 03:45 Metamyelocytes % 2.0 % (0) H 04/20/17 21:30 Neutrophils # 17.8 K/mcL (1.6-8.9) H 04/21/17 03:45 Lymphocytes # 0.5 K/mcL (0.6-4.6) L 04/21/17 03:45 Monocytes # 1.5 K/mcL (0.0-1.3) H 04/21/17 03:45 Reactive Lymphocytes Present (Not Present) A 04/20/17 21:30 Large Platelets Present (Not Present) A 04/20/17 21:30 Immature Plt Fraction 9.2 % (1.1-6.1) H 04/21/17 03:45 PT 12.2 Seconds (9.4-12.1) H 04/21/17 05:10 APTT 40.9 Seconds (26.0-36.0) H 04/22/17 09:05 D-Dimer 5301 ng/mLFEU (0-500) H 04/20/17 21:30 Heparin Anti-Xa, Unfract 1.06 IU/mL (0.30-0.70) H* 04/21/17 19:05 VBG pH 6.85 pH Units (7.32-7.42) L* 04/20/17 21:41 VBG pCO2 109 mmHg (41-51) H* 04/20/17 21:41 VBG pO2 101 mmHg (25-50) H 04/20/17 21:41 VBG HCO3 19 mEq/L (21-27) L 04/20/17 21:41 BUN 22 mg/dL (6-20) H 04/22/17 02:25 Est GFR (Non-Af Amer) 56 (> 60) L 04/22/17 02:25 Glucose 127 mg/dL (70-105) H 04/22/17 02:25 POC Glucose 150 (58-89) H 04/21/17 23:39 AST 48 Units/L (13-39) H 04/20/17 21:30 Alkaline Phosphatase 128 Units/L (34-104) H 04/20/17 21:30 Ammonia 119 mcmol/L (16-53) H 04/20/17 21:30 Troponin I 0.86 ng/mL (< 0.04) H* 04/21/17 03:45 B-Natriuretic Peptide 3472 pg/mL (Less than 100) H 04/20/17 21:30 LDL Cholesterol, Calc 120 mg/dL (0-99) H 04/22/17 09:05 Beta-Hydroxybutyric Acd 0.00 mmol/L (0.02-0.27) L 04/20/17 21:30 Urine Protein 30 mg/dL (Neg-Trace) H 04/20/17 21:43 Urine Microscopic RBC 3-5 per hpf (0-3) H 04/20/17 21:43 Ur Squamous Epith Cells Many per lpf (None-Few) H 04/20/17 21:43 Urine Opiates Screen Positive ng/mL ([place]=898) H 04/20/17 21:43 U Marijuana (THC) Screen Positive ng/mL (Cutoff = 50) H 04/20/17 21:43 - Microbiology Findings Microbiology Findings: Microbiology, Last 48 Hours 04/21/17 01:45 Sputum Culture - Preliminary Sputum - Clinical Findings Intake & Output: Intake & Output 04/21/17 04/22/17 04/22/17 23:59 07:59 15:59 Intake Total 210 / 210 266 / 266 100 / 100 Output Total 1150 / 1150 385 / 385 100 / 100 Balance -940 / -940 -119 / -119 0 / 0 Weight 55.1 kg Consult Discharge Plan - Plan Referrals: Griselda Richey, BUILDING PRESSURE WASHER [Primary Care Provider] - <Charbel Castillo - Last Filed: 04/22/17 19:21> Date of Encounter: 04/22/17 Objective PUL Vital signs: Last Vital Signs Temp 97.6 F 04/22/17 16:00 Pulse 65 04/22/17 18:00 Resp 12 04/22/17 18:00 BP 110/66 04/22/17 18:00 Pulse Ox 99 04/22/17 18:00 Ventilator Settings Ventilator Settings: Ventilator Settings, Last 8 Hours Ventilator Mode A/C Ventilator Mode A/C Ventilator Mode A/C Ventilator Mode A/C Ventilator Mode A/C Ventilator Mode A/C Ventilator Mode A/C Ventilator Mode A/C Ventilator Mode A/C Ventilator Mode A/C Ventilator Mode VC+ Ventilator Mode VC+ Ventilator Tidal Volume 450 Setting Ventilator Tidal Volume 450 Setting Ventilator Tidal Volume 450 Setting Ventilator Tidal Volume 450 Setting Ventilator Tidal Volume 450 Setting Ventilator Tidal Volume 450 Setting Ventilator Tidal Volume 450 Setting Ventilator Tidal Volume 450 Setting Ventilator Tidal Volume 450 Setting Ventilator Tidal Volume 450 Setting Ventilator Tidal Volume 450 Setting Ventilator Tidal Volume 450 Setting Ventilator Respiratory Rate 12 Setting Ventilator Respiratory Rate 12 Setting Ventilator Respiratory Rate 12 Setting Ventilator Respiratory Rate 12 Setting Ventilator Respiratory Rate 12 Setting Ventilator Respiratory Rate 12 Setting Ventilator Respiratory Rate 12 Setting Ventilator Respiratory Rate 12 Setting Ventilator Respiratory Rate 12 Setting Ventilator Respiratory Rate 12 Setting Ventilator Respiratory Rate 12 Setting Ventilator Respiratory Rate 12 Setting Actual Respiratory Rate 12 Actual Respiratory Rate 12 Actual Respiratory Rate 14 Actual Respiratory Rate 14 Actual Respiratory Rate 14 Actual Respiratory Rate 14 Actual Respiratory Rate 12 Actual Respiratory Rate 12 Actual Respiratory Rate 12 Actual Respiratory Rate 12 Actual Respiratory Rate 12 Actual Respiratory Rate 12 Positive End Expiratory 5 Pressure Positive End Expiratory 5 Pressure Positive End Expiratory 5 Pressure Positive End Expiratory 5 Pressure Positive End Expiratory 5 Pressure Positive End Expiratory 5 Pressure Positive End Expiratory 5 Pressure Positive End Expiratory 5 Pressure Positive End Expiratory 5 Pressure Positive End Expiratory 5 Pressure Positive End Expiratory 5 Pressure Positive End Expiratory 5 Pressure Peak Inspiratory Airway 30 Pressure Peak Inspiratory Airway 30 Pressure Peak Inspiratory Airway 27 Pressure Peak Inspiratory Airway 27 Pressure Peak Inspiratory Airway 27 Pressure Peak Inspiratory Airway 27 Pressure Peak Inspiratory Airway 31 Pressure Peak Inspiratory Airway 31 Pressure Peak Inspiratory Airway 31 Pressure Peak Inspiratory Airway 31 Pressure Peak Inspiratory Airway 35 Pressure Peak Inspiratory Airway 35 Pressure Results - Laboratory Findings CBC and BMP: 04/21/17 03:45 04/22/17 02:25 ABG ABG pH 7.37 pH Units (7.32-7.45) 04/21/17 17:12 ABG pCO2 43 mmHg (35-45) 04/21/17 17:12 ABG pO2 86 mmHg (85-104) 04/21/17 17:12 ABG O2 Saturation 96 % (95-98) 04/21/17 17:12 PT/INR, D-dimer PT 12.2 Seconds (9.4-12.1) H 04/21/17 05:10 D-Dimer 5301 ng/mLFEU (0-500) H 04/20/17 21:30 Abnormal lab findings: Abnormal lab results WBC 20.1 K/mcL (4.3-11.1) H 04/21/17 03:45 RBC 3.78 M/mcL (3.82-4.97) L 04/21/17 03:45 Hgb 11.0 g/dL (11.5-15.4) L 04/21/17 03:45 Hct 35.1 % (35.3-44.9) L 04/21/17 03:45 MCHC 31.3 g/dL (31.6-35.5) L 04/21/17 03:45 Metamyelocytes % 2.0 % (0) H 04/20/17 21:30 Neutrophils # 17.8 K/mcL (1.6-8.9) H 04/21/17 03:45 Lymphocytes # 0.5 K/mcL (0.6-4.6) L 04/21/17 03:45 Monocytes # 1.5 K/mcL (0.0-1.3) H 04/21/17 03:45 Reactive Lymphocytes Present (Not Present) A 04/20/17 21:30 Large Platelets Present (Not Present) A 04/20/17 21:30 Immature Plt Fraction 9.2 % (1.1-6.1) H 04/21/17 03:45 PT 12.2 Seconds (9.4-12.1) H 04/21/17 05:10 APTT 40.9 Seconds (26.0-36.0) H 04/22/17 09:05 D-Dimer 5301 ng/mLFEU (0-500) H 04/20/17 21:30 Heparin Anti-Xa, Unfract 1.06 IU/mL (0.30-0.70) H* 04/21/17 19:05 VBG pH 6.85 pH Units (7.32-7.42) L* 04/20/17 21:41 VBG pCO2 109 mmHg (41-51) H* 04/20/17 21:41 VBG pO2 101 mmHg (25-50) H 04/20/17 21:41 VBG HCO3 19 mEq/L (21-27) L 04/20/17 21:41 BUN 22 mg/dL (6-20) H 04/22/17 02:25 Est GFR (Non-Af Amer) 56 (> 60) L 04/22/17 02:25 Glucose 127 mg/dL (70-105) H 04/22/17 02:25 POC Glucose 150 (58-89) H 04/21/17 23:39 AST 48 Units/L (13-39) H 04/20/17 21:30 Alkaline Phosphatase 128 Units/L (34-104) H 04/20/17 21:30 Ammonia 119 mcmol/L (16-53) H 04/20/17 21:30 Troponin I 0.86 ng/mL (< 0.04) H* 04/21/17 03:45 B-Natriuretic Peptide 3472 pg/mL (Less than 100) H 04/20/17 21:30 LDL Cholesterol, Calc 120 mg/dL (0-99) H 04/22/17 09:05 Beta-Hydroxybutyric Acd 0.00 mmol/L (0.02-0.27) L 04/20/17 21:30 Urine Protein 30 mg/dL (Neg-Trace) H 04/20/17 21:43 Urine Microscopic RBC 3-5 per hpf (0-3) H 04/20/17 21:43 Ur Squamous Epith Cells Many per lpf (None-Few) H 04/20/17 21:43 Urine Opiates Screen Positive ng/mL ([place]=084) H 04/20/17 21:43 U Marijuana (THC) Screen Positive ng/mL (Cutoff = 50) H 04/20/17 21:43 - Microbiology Findings Microbiology Findings: Microbiology, Last 48 Hours 04/21/17 01:45 Sputum Culture - Preliminary Sputum - Clinical Findings Intake & Output: Intake & Output 04/22/17 04/22/17 04/22/17 07:59 15:59 23:59 Intake Total 266 / 266 350 / 350 Output Total 385 / 385 700 / 700 Balance -119 / -119 -350 / -350 Weight 55.1 kg - Attending Attestation I examined this patient and my medical decision-making was reviewed with the Resident Physician. I agree with the documented findings, disposition and treatment plan as described except to the extent set forth below. Patient seen and examined. Labs, radiology, chart personally reviewed. Agree with resident's history and physical, assessment, plan with following comments: LEGAL PRACTICE MANAGER: Patient follows commands, patient appears to be anxious and increase sedation. Pulmonary: Acceptable oxygenation and ventilation. Patient will remain intubated for the procedure and also transfer if needed. Cardiovascular: Relatively stable . We will defer management to cardiology team. GI: Nutrition per dietary and GI prophylaxis per routine Heme: DVT prophylaxis per routine ID: Continue antibiotics and plan to de-escalation Renal; urine out put and renal funtion reviewed Endorcine: blood glucose is monitored. Stop systemic steroid Lines: all lines checked and no evidence of infections Skin: skin care to prevent pressure ulcers per nursing routine care
[2017-04-22] MEDS ORDERED: Pantoprazole 40 MG VIAL IVP SCH (12:30)
[2017-04-22] MEDS ORDERED: Heparin 1,000 UNITS/500 mL 500 ML ONE (14:09)
[2017-04-22] MEDS ORDERED: Nitroglycerin 1,000 MCG/10 ML VIAL IV ONE (14:09)
[2017-04-22] MEDS ORDERED: 0.9 % Sodium Chloride 1,000 ML ONE ×2 (14:09→14:46)
[2017-04-22] MEDS ORDERED: *HR* Heparin 10,000 UNIT/10 ML VIAL ONE (14:09)
--- NOTE | 2017-04-22 16:10 | Pre-Sedation Evaluation ---
Pre-sedation evaluation - Pre-sedation checklist Date of procedure: 04/22/17 Procedure: heart catheterization Recent Vitals: Last Vital Signs Temp 97.7 F 04/22/17 12:20 Pulse 64 04/22/17 14:24 Resp 12 04/22/17 14:24 BP 91/56 04/22/17 14:24 Pulse Ox 94 04/22/17 14:24 H&P (including ROS) documented in medical record: Yes Previous reaction to sedatives/anesthetics: No Dietary Status: NPO after Midnight Dentition: dentures removed Possible difficult airway: No ASA Classification *see protocol: CLASS IV-Severe systemic disease/constant threat to pt's life Plan of Care: Pt appropriate candidate for procedure/moderate/conscious sedation , Risks/benefits of procedure/sedation discussed w/ patient/family, If not NPO; Risk of intake outweiged by necessity to perform procedure
--- NOTE | 2017-04-22 16:19 | Invasive Diagnostic Lab Proc ---
Name: Michelle Humphrey Date of Study: 04/22/2017 Date: 1960 Ht: 57.9in Medical Record#: [id number] Age: 56 Wt: 121.25lb Gender: Female BSA: 1.47 Order #: [id number] BMI: 25.45 Physicians Procedure Physician: Magdaleno Horan DO Referring MD: Referring MD: Staff Name Position Time In Silvina Almodovar RN Monitor 02:41 PM Jim Chin RN Doctor Of Naprapathy 02:41 PM Madi Villalta RT (R) Scrub 02:41 PM Arabella Blue RT (R) 02:41 PM Indications Indication Non-Stemi Cardiomyopathy Procedures Performed Procedure L HRT ARTERY/VENTRICLE ANGIO AORTOGRAPHY, ABDOMINAL S&I Pre-Procedure Checklist Informed consent is complete signed and on chart. H&P is on chart. ID band is on and ID verified with patient. Patient NPO for procedure The procedure was described for the patient and questions were answered. Blood Pressure: 100/68 ECG is on chart. Plan of Care Patient will tolerate the procedure without complications. Adequate level of comfort will be maintained. Hemodynamics will remain stable Patient will recover from procedure without complications. Respiratory function will be maintained. Cardiac rhythm will remain stable. Patient temperature will be maintained. Patient and/or family have verbalized understanding of the procedure. Patient Education Chief Complaint/Reason for Test: Cardiac Cath Developmental Category: Adult (18-64 years) Learning Barriers: None Education Needs: Procedure Education Method: Verbal Information Taught: Cardiac Cath Educational Evaluation: Able to repeat information Intravenous Access Time IV Size Location DC'd Fluid/Drip Rate Units RN Lt Wrist 25 ml/hr Jim Chin RN Rt Antecubital SaltythornJim roman RN Rt Femoral Jim Chin RN Allergies No Known Allergies Vital Signs Time BP (mmHg) HR (bpm) O2 Sat. RR (bpm) LOC 100 / 68 81 99 % 16 5 = Fully awake and oriented or at pre-proc level 02:49 PM / % 4 = Oriented but drowsy 02:49 PM / % 4 = Oriented but drowsy 03:05 PM / % 4 = Oriented but drowsy 03:20 PM / % 4 = Oriented but drowsy 03:35 PM / % 4 = Oriented but drowsy 02:51 PM 97 / 64 99 95 % 17 02:55 PM 101 / 61 65 95 % 23 03:00 PM 110 / 72 79 97 % 16 03:05 PM 112 / 68 80 95 % 18 03:10 PM 114 / 77 68 96 % 10 03:15 PM 110 / 70 69 96 % 17 03:20 PM 114 / 78 77 96 % 11 03:25 PM 117 / 71 74 96 % 18 03:30 PM 118 / 76 72 96 % 12 03:35 PM 119 / 79 70 96 % 11 03:41 PM 119 / 75 69 96 % 17 03:46 PM 115 / 70 70 95 % 16 Procedural Medications Time Medication Dose Units Method Given By 02:47 PM Precedex 0.7 mcg/kg/hr Intravenous 02:48 PM versed 2 mg/hr Intravenous 02:48 PM fentanyl 15 ml/hr Intravenous 02:57 PM Lidocaine 2% 10 ml Subcutaneous Magdaleno Horan DO ASA Classification: CLASS IV- Severe systemic that is constant threat to patient's life Cate Score Preprocedure Postprocedure Activity 2- Moves 4 extremities sustained head lift Activity 2- Moves 4 extremities sustained head lift Circulation 2- SBP +/= 20 points of pre-anesthetic level Circulation 2- SBP +/= 20 points of pre-anesthetic level Consciousness 1- Responds to verbal stimuli drowsy Consciousness 2- Awake and alert oriented x 3 O2 Saturation 0- O2 saturation 90% even with O2 supplement O2 Saturation 2- Able to maintain O2 satruation of 92% on room air Respiratory 1- Labored or limited respiration requires airway Respiratory 2- Able to deep breathe and cough well Total Score 6 Total Score 10 Contrast Agent: Isovue Diagnostic Contrast: 75 ml Total Contrast: 75 ml Fluoro Dose: 160 mGy Procedure Log Time Note Enter By 02:23 PM CathStat 02:40 PM 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 Bilateral groin prepped with Chloraprep by Madi Villalta (R), safety strap applied then patient was draped. Skin intact. mm 02:42 PM Physican paged/called 14:42. oumm 02:42 PM Physican responded and notified patient is ready 14:42 oumm 02:42 PM Physician arrived 14:42 tsoummers 02:42 PM Meet and greet completed 02:42 PM Sign in performed according to hospital policy. oumm 02:42 PM Procedure start 14:42 tsoummers 02:42 PM Case Start 02:48 PM Patient arrived at 14:47 with Precedex Intravenous drip @ 0.7 mcg/kg/hr tsmm 02:48 PM Patient arrived at 14:48 with versed Intravenous drip @ 2 mg/hr tsoumm 02:49 PM Patient arrived at 14:48 with fentanyl Intravenous drip @ 15 ml/hr tsoumm 02:49 PM Pt intubated prior to arrival. Respiratory at bedside. mm 02:49 PM Time: 14:49 Patient comfortable and pain free: Yes mm 02:49 PM Time: 14:49LOC: 4 = Oriented but drowsy oumm 02:50 PM Clinical Presentation: Unstable angina mm 02:50 PM Vitals capture started with the following parameters, Patient=Adult, Interval=5 min, Initial Jaznopnj=997 mmHg, Deflation Rate=5 mmHg, Cuff placed on Left Arm 02:50 PM Recorded ECG: HR=69 Condition=Condition 1 02:51 PM HR=99 bpm, NIBP=97/64 mmhg, SpO2=95.0 %, Resp=17 B/min 02:52 PM Pressure channel 1 zeroed. 02:55 PM HR=65 bpm, NYUT=764/61 mmhg, SpO2=95.0 %, Resp=23 B/min, Comment=SR PAC's 02:56 PM Recorded ECG: HR=67 Condition=Condition 1 02:56 PM Time out performed according to hospital policy 02:58 PM Time: 14:57 10 ml Lidocaine 2% to right groin Subcutaneous Given by Magdaleno Horan DO tsoummers 02:58 PM Micro-Introducer Kit utilized for sheath placement tsoummers 03:00 PM HR=79 bpm, PJPG=993/72 mmhg, SpO2=97.0 %, Resp=16 B/min, Comment=SR 03:05 PM Time: 14:49LOC: 4 = Oriented but drowsy tsoummers 03:05 PM Time: 14:49 Patient comfortable and pain free: Yes tsoummers 03:05 PM HR=80 bpm, OUFB=172/68 mmhg, SpO2=95.0 %, Resp=18 B/min, Comment=SR 03:10 PM HR=68 bpm, MTWT=587/77 mmhg, SpO2=96.0 %, Resp=10 B/min, Comment=SR 03:13 PM Access obtained by percutaneous puncture. 6Fr 10cm Terumo [place] sheath placed in left Femoral artery. [id number] tsoummers 03:13 PM 0.035 145cm Navilyst 3mmJ wire [id number] tsoummers 03:13 PM 6Fr FR 4 catheter inserted over the wire [facility] tsoummers 03:13 PM Catheter selectively placed in left ventricle tsoummers 03:14 PM Bolus angiogram of left Ventricle complete: hand injection tsoummers 03:14 PM Recorded Pressure: LV, HR=72, Condition=Condition 1 (Left Ventricle) LV 100/15/21 03:14 PM Recorded Pressure: LV, HR=74, Condition=Condition 1 (Left Ventricle) LV 106/21/34 03:14 PM Recorded Pressure: LV, Ao, HR=72, Condition=Condition 1 (Left Ventricle) LV 104/18/32, (Aorta) Ao 108/47/72 03:15 PM RCA angiography performed in multiple views. tsoummers 03:15 PM Recorded Pressure: Ao, HR=72, Condition=Condition 1 (Aorta) Ao 68/38/49 03:15 PM HR=69 bpm, CILO=143/70 mmhg, SpO2=96.0 %, Resp=17 B/min, Comment=SR 03:16 PM Catheter removed tsoummers 03:16 PM 6Fr JL4 Runway guide catheter was used to cannulate the PCI vessel successfully. reused? No tsoummers 03:16 PM Wire removed tsoummers 03:16 PM Recorded Pressure: Ao, HR=69, Condition=Condition 1 (Aorta) Ao 80/43/58 03:17 PM Recorded Pressure: Ao, HR=68, Condition=Condition 1 (Aorta) Ao 111/63/83 03:17 PM LCA angiography performed in multiple views. tsoummers 03:20 PM Time: 15:05 Patient comfortable and pain free: Yes tsoummers 03:20 PM Time: 15:05LOC: 4 = Oriented but drowsy tsoummers 03:20 PM HR=77 bpm, ATXL=170/78 mmhg, SpO2=96.0 %, Resp=11 B/min, Comment=SR 03:22 PM Guide catheter removed intact. tsoummers 03:22 PM 6Fr Pigtail catheter inserted over the wire DN tsoummivett 03:23 PM Bolus angiogram of Descending aorta complete: hand injection tsoummers 03:25 PM HR=74 bpm, QKDV=928/71 mmhg, SpO2=96.0 %, Resp=18 B/min, Comment=SR 03:26 PM Recorded Pressure: Ao, HR=74, Condition=Condition 1 (Aorta) Ao 124/69/91 03:28 PM Lesion found in Proximal RCA. Pre Stenosis: 60 Pre TERRANCE Flow: tsoummers 03:28 PM Lesion found in Distal RCA. Pre Stenosis: 99 Pre TERRANCE Flow: tsoummers 03:29 PM Right Coronary, Right Posterior Descending Arteries with Right Posterolateral and Acute Marginal branches with 99 % stenosis. tsoummers 03:30 PM HR=72 bpm, PNII=676/76 mmhg, SpO2=96.0 %, Resp=12 B/min, Comment=SR 03:31 PM Catheter removed tsoummers 03:32 PM Wire removed tsoummers 03:35 PM Time: 15:20LOC: 4 = Oriented but drowsy tsoummers 03:35 PM Time: 15:20 Patient comfortable and pain free: Yes tsoummers 03:35 PM HR=70 bpm, QXXU=566/79 mmhg, SpO2=96.0 %, Resp=11 B/min, Comment=SR 03:39 PM Procedure completed at 15:39 tsoummers 03:41 PM HR=69 bpm, DEIV=748/75 mmhg, SpO2=96.0 %, Resp=17 B/min, Comment=SR 03:42 PM Sign out completed: Radiation Dose 160.34 mGy Fluoro Time: 1.9 Isovue 370 - 200ml contrast 75 ml given by Magdaleno Horan DO. Complications: NoneCardiac Rehab Consult needed: YesConfirmed administered medications: Yes tsoummers 03:42 PM Isovue 370 - 200ml,1 Bottle(s) used. tsoummers 03:42 PM Arterial sheath pulled, Mynx closure device used and was Successful [id number] S/N. tsoummers 03:44 PM Estimated Blood Loss: minimal tsoummers 03:44 PM Post ECG NSR tsoummers 03:44 PM Post Blood Pressure 119/75 tsoummers 03:45 PM Information taught Cardiac Cath tsoummers 03:45 PM Education needs Procedure, Plan of Care, and Responsibilities of Patient in Care tsoummers 03:45 PM Learning barriers :None tsoummers 03:45 PM Learning barriers :Sedated and Physical tsoummers 03:45 PM Education Methods Verbal tsoummers 03:45 PM Education evaluation Other tsoummers 03:45 PM Site status No bleeding/hematoma - Lt Groin as reported by Madi Villalta RT (R) at 15:45 tsoummers 03:46 PM HR=70 bpm, BVAZ=617/70 mmhg, SpO2=95.0 %, Resp=16 B/min, Comment=SR 03:46 PM Opsite applied tsoummers 03:46 PM Plavix, Effient or Brilinta given No tsoummers 03:46 PM Delay to floor No tsoummers 03:47 PM Family placed in consult room. tsoummers 03:47 PM Complications: None tsoummers 03:47 PM Fluoro Time: 1.9 tsoummers 03:48 PM Isovue 370 - 200ml contrast 75 ml given by Magdaleno Horan DO. tsoummers 03:48 PM Radiation Dose 160.34 mGy tsoummers 03:50 PM Report given to Gege GARCIA Pt taken to ICU Room #4. 15:50 tsoummers 03:50 PM Time: 15:35 Patient comfortable and pain free: Yes tsoummers 03:50 PM Time: 15:35LOC: 4 = Oriented but drowsy tsoummers 03:52 PM Coronary Dominance: right tsoummivett 03:52 PM Lesion found in Proximal LAD. Pre Stenosis: 99 Pre TERRANCE Flow: tsoummers 03:52 PM Lesion found in Mid Circumflex. Pre Stenosis: 99 Pre TERRANCE Flow: [email or web address] 03:53 PM Proximal Left Anterior Descending Coronary Artery with 99% stenosis. tsoummivett 03:53 PM Circumflex, Obtuse Marginal, Left Posterior Descending, and Left Posterolateral Coronary Arteries with 99 % stenosis. eb 03:56 PM [facility] 03[facility]56 PM Physician reviewed films. Dr. Walton spoke with family to discuss options. Decided to send to pt to [place]. eb 04:09 PM ASA Class CLASS IV- Severe systemic that is constant threat to patient's life eb Complications Complication None Hemodynamics Pressures Site Systolic/A Wave Diastolic/V Wave Mean LV 100 15 21 LV 106 21 34 LV 104 18 32 AO 108 47 72 AO 68 38 49 AO 80 43 58 AO 111 63 83 AO 124 69 91 Post Procedure Information Blood Pressure: 119/75 mmHg Rhythm: NSR Post procedural instructions were given Closure Device Time Device Success/Fail 04/22/2017 3:41:00 PM MynxGrip Successful Site Checks Time Location Status Staff Sheath In? Note 03:45 PM Lt Groin No bleeding/hematoma Madi Villalta RT (R) Pulses Time Site Pre-Procedure Post-Procedure Note Bilateral DP & PT 1+ Bilateral radial 2+ Updated by Silvina Almodovar RN on 04/22/2017 4:10:11 PM electronically signed on 04/22/2017 4:11:57 PM with status of Final
--- NOTE | 2017-04-22 16:59 | Transfer Summary ---
<Johann Cui - Last Filed: 04/23/17 07:03> Date of Encounter: 04/23/17 Time of Encounter: 17:00 Transfer Discharge Sum: Diag - Discharge Diagnosis (1) 3-vessel coronary artery disease Status: Acute (2) Elevated troponin Status: Acute (3) Acute respiratory acidosis Status: Resolved (4) Acute respiratory failure with hypoxia Status: Resolved (5) Acute CHF Status: Resolved (6) Pulmonary edema Status: Resolved (7) Hypotension Status: Resolved (8) Tachycardia Status: Resolved Transfer Discharge Sum: Med - Medications Active and Home Medications: Home Medications Carbidopa/Levodopa [Carbidopa-Levodopa 10-100 Tab] 1 tab PO TID 04/20/17 [ History Confirmed 04/20/17] Gabapentin [Neurontin] 1,200 mg PO TID 04/20/17 [History Confirmed 04/20/17] Nicotine Patch [Nicoderm] 21 mg TD DAILY 04/20/17 [History Confirmed 04/20/17] Omeprazole [PriLOSEC] 20 mg PO DAILY 04/20/17 [History Confirmed 04/20/17] OxyCODONE Immed Rel [Roxicodone 10 MG] 10 mg PO TID PRN 04/20/17 [History Confirmed 04/20/17] Active Medications Aspirin (Aspirin) 81 mg PO DAILY YESY Stop: 10/22/17 09:01 Last Admin: 04/22/17 08:20 Dose: 81 mg Chlorhexidine Gluconate (Chlorhexidine Rinse) 15 ml MM BID YESY Stop: 10/22/17 09:01 Last Admin: 04/22/17 08:20 Dose: 15 ml Dextrose/Water (Dextrose 50% (Syg)) 25 ml IVP AD PRN PRN Reason: Hypoglycemia Stop: 10/21/17 01:07 Furosemide (Lasix) 40 mg IVP DAILY YESY Stop: 10/21/17 14:31 Last Admin: 04/22/17 08:20 Dose: 40 mg Glucagon (Glucagen) 1 mg IM ONCE PRN PRN Reason: Hypoglycemia Stop: 10/21/17 01:07 Glucose (Gluctose) 15 gm PO ONCE PRN PRN Reason: Hypoglycemia Stop: 10/21/17 01:07 Glucose (Gluctose) 30 gm PO ONCE PRN PRN Reason: Hypoglycemia Stop: 07/19/18 01:07 Heparin Sodium (Porcine) (Heparin) 3,300 unit 60 unit/kg (3300 unit) IVP Q6HR PRN PRN Reason: SEE COMMENTS Stop: 10/22/17 08:28 Heparin Sodium (Porcine) (Heparin) 1,700 unit 30 unit/kg (1700 unit) IVP Q6H PRN PRN Reason: SEE COMMENTS Stop: 10/22/17 08:28 Fentanyl Citrate 1,000 mcg/ (Sodium Chloride) 100 mls @ 5 mls/hr IVC CONT YESY; 50 MCG/HR PRN Reason: Protocol Stop: 10/20/17 21:46 Last Admin: 04/22/17 14:03 Dose: 200 mcg/hr, 20 mls/hr Dexmedetomidine HCl (Precedex Premix) 400 mcg in 100 mls @ 3.175 mls/hr IVC .Q24H YESY; 0.2 MCG/KG/HR PRN Reason: Protocol Stop: 10/21/17 01:16 Last Admin: 04/22/17 16:34 Dose: 0.7 mcg/kg/hr, 11.113 mls/hr Levofloxacin/Dextrose (Levaquin Premix 750mg/150 Ml) 750 mg in 150 mls @ 100 mls/hr IVPB Q48H YESY PRN Reason: Protocol Stop: 10/21/17 09:01 Last Infusion: 04/21/17 10:08 Dose: Infused Norepinephrine Bitartrate 4 mg (/ Dextrose) 254 mls @ 19.05 mls/hr IVC CONT YESY ; 5 MCG/MIN PRN Reason: Protocol Stop: 10/21/17 02:46 Last Admin: 04/21/17 10:26 Dose: 10 mcg/min, 38.1 mls/hr Calcium Gluconate 1,000 mg/ (Sodium Chloride) 60 mls @ 111 mls/hr IVPB Q6HR PRN PRN Reason: Hypocalcemia Stop: 10/21/17 02:36 Magnesium Sulfate (Magnesium Sulfate Premix 2gm/50ml) 2 gm in 50 mls @ 50 mls/ hr IVPB Q6H PRN PRN Reason: Hypomagnesemia Stop: 10/21/17 02:36 Potassium Chloride (Potassium Chloride 20 Meq/100 Ml) 40 meq in 200 mls @ 100 mls/hr IVPB Q1H PRN PRN Reason: Potassium less than 4 Stop: 10/21/17 02:36 Sodium Phosphate 30 mmol/ (Sodium Chloride) 260 mls @ 42 mls/hr IVPB Q12H PRN PRN Reason: Hypophosphatemia Stop: 10/21/17 02:36 Heparin Sodium/Dextrose (Heparin 25,000 Unit/500 Ml D5w) 25,000 unit in 500 mls @ 13.224 mls/hr IVC .Q24H YESY; 12 UNIT/KG/HR PRN Reason: Protocol Stop: 10/22/17 08:31 Last Titration: 04/22/17 14:16 Dose: 0 unit/kg/hr, 0 mls/hr Midazolam HCl 50 mg/ Sodium (Chloride) 100 mls @ 4 mls/hr IVC CONT YESY; 2 MG/HR PRN Reason: Protocol Stop: 10/22/17 10:01 Last Admin: 04/22/17 10:20 Dose: 2 mg/hr, 4 mls/hr Insulin Human Lispro (Humalog) 0 units SQ Q6HR YESY PRN Reason: Protocol Stop: 10/21/17 06:01 Last Admin: 04/22/17 12:16 Dose: 2 units Metoprolol Succinate (Toprol Xl) 25 mg PO DAILY [facility] Stop: 10/21/17 14:31 Last Admin: 04/22/17 08:20 Dose: 25 mg Midazolam HCl (Versed) 2 mg IVP Q1H PRN PRN Reason: Anxiety Stop: 10/22/17 08:31 Last Admin: 04/22/17 08:53 Dose: 2 mg Pantoprazole Sodium (Protonix) 40 mg IVP DAILY@0730 [facility] Stop: 10/22/17 12:31 Last Admin: 04/22/17 12:23 Dose: 40 mg Ticagrelor (Brilinta) 90 mg PO BID [facility] Stop: 10/22/17 09:01 Last Admin: 04/22/17 08:20 Dose: 90 mg Transfer Discharge Sum: Data Procedures and tests throughout hospitalization: Pending Orders 04/21/17 01:06 Glucose, blood poc measurement [RC] .Q4 Hypoglycemia Treatment Orders [RC] .once Dextrose 50 % in Water (Syg) [Dextrose 50% (Syg)] 25 ml IVP AD PRN Dextrose Gel [Gluctose] 15 gm PO ONCE PRN Dextrose Gel [Gluctose] 30 gm PO ONCE PRN Glucagon, Human Recombinant [GlucaGen] 1 mg IM ONCE PRN 04/21/17 01:07 Consult to Cardiology [CONS] Routine Consult to Pulmonology [CONS] Routine 04/21/17 01:15 Dexmedetomidine HCl [PRECEDEX Premix] 400 mcg in 100 ml IVC 0.2 mcg/kg/hr 04/21/17 01:45 Sputum Culture [Culture,Sputum with Gram Stain] [RM] Stat 04/21/17 02:35 Calcium Gluconate 1,000 mg 0.9 % Sodium Chloride 50 ml IVPB Q6HR Magnesium Sulfate [Magnesium Sulfate Premix 2gm/50mL] 2 gm in 50 ml IVPB Q6H Potassium Chloride [Potassium Chloride 20 mEq/100 mL] 40 meq in 200 ml IVPB Q1H Sodium Phosphate 30 mmol 0.9 % Sodium Chloride 250 ml IVPB Q12H 04/21/17 02:45 Norepinephrine [Levophed] 4 mg D5% in Water [Dextrose 5%] 250 ml IVC CONT 04/21/17 03:57 Admit as Inpatient Routine 04/21/17 04:54 Assess for bleeding [RC] .PER UNIT PROTOCOL Communication order [RC] .PRN Notify provider [RC] .PRN 04/21/17 06:00 Insulin LISPRO [HumaLOG] See Protocol SQ Q6HR 04/21/17 09:00 Levofloxacin 750 MG/150 ML [Levaquin Premix 750mg/150 mL] 750 mg in 150 ml IVPB Q48H 04/21/17 14:30 Furosemide [Lasix] 40 mg IVP DAILY Metoprolol XL (24 HR) Succ [Toprol XL] 25 mg PO DAILY 04/22/17 08:21 Midazolam HCl [Versed] 2 mg IVP Q1H PRN 04/22/17 08:27 Heparin 1,700 unit IVP Q6H PRN Heparin 3,300 unit IVP Q6HR PRN 04/22/17 08:30 Heparin 25,000 UNIT/500 ML D5W 25,000 unit in 500 ml IVC 12 unit/kg/hr 04/22/17 09:00 Aspirin 81 mg PO DAILY Chlorhexidine Rinse 15 ml MM BID Ticagrelor [Brilinta] 90 mg PO BID 04/22/17 10:00 Midazolam HCl [Versed] 50 mg 0.9 % Sodium Chloride 90 ml IVC CONT 04/22/17 12:30 Pantoprazole [Protonix] 40 mg IVP DAILY@0730 04/22/17 16:06 Bed rest w/bathroom privileges [RC] .ONCE Communication order [RC] ONCE Sheath management 1 [RC] ONCE Vital Signs Assessment [RC] Q4H Advance Diet as Tolerated Routine 04/22/17 16:30 PTT [Activated Partial Thrombo Time] [COAG] Timed 04/23/17 02:45 Basic Metabolic Panel DAILY - Impressions ITS Impressions Echocardiogram 04/21/17 01:07 Impressions: LVEF 25%. Severely reduced LV systolic function with regional variations (see diagram below) that represent LAD territory. Diastolic dysfunction with elevated filling pressures. Definity echo contrast was used. There is no LV thrombus. Probably normal RV size. Function is mildly reduced. Mild mitral regurgitation. Mild tricuspid regurgitation. No pulmonary hypertension by TR gradient, 23 mmHg. There is a small pericardial effusion present along the inferior border of the RV. No tamponade. No prior echo for comparison. Abnormal findings communicated to ordering provider. Left Ventricular Wall Motion: Rest Echo Findings The apex, apical inferior, apical anterior, mid anterior, apical septal, mid inferior septal, apical lateral, mid anterior septal and basal anterior septal house were hypokinetic. The mid inferior lateral and basal inferior lateral house were not visualized. Findings: Study Quality * Technically sub-optimal due to clinical status. Patient supine on mechanical ventilation. ECG Findings * Normal sinus rhythm. PACs. Left Ventricle * LVEF 25%. * LV is not dilated. * Normal LV wall thickness. * Diastolic dysfunction with elevated filling pressures. * Definity echo contrast was used. * There is no LV thrombus. Right Ventricle * Probably normal RV size. Function is mildly reduced. Left Atrium * Normal left atrial size. Right Atrium * Normal right atrial size. Aortic Valve * No aortic regurgitation. * Aortic valve not well visualized. * No aortic stenosis. Mitral Valve * Mild mitral annular calcification * Normal mitral valve structure. * No mitral stenosis. * Mild mitral regurgitation. Tricuspid Valve * Tricuspid valve not well visualized. * Mild tricuspid regurgitation. Pulmonic Valve * Pulmonic valve is not well visualized. * No pulmonic stenosis. * No pulmonic regurgitation. Pulmonary Artery * Pulmonary artery not well visualized. Aorta * Normally sized aortic root. Pericardium * There is a small pericardial effusion present along the inferior border of the RV. No tamponade. Interatrial Septum * No evidence of PFO by color Doppler. IVC * The IVC is not dilated. Chest X-Ray 04/21/17 05:03 IMPRESSION: Decreased interstitial edema. No substantial change in bilateral effusions allowing for differences in patient positioning. Retrocardiac opacities favored to reflect atelectasis given short interval development. Appropriate endotracheal tube positioning. D/ / Dean Ma / Dean Ma Interpreting Provider: Dean Ma Transfer Discharge Sum: Prov Date of admission: 04/20/17 23:43 Primary care physician: Griselda Richey CNP Consults: 04/21/17 01:07 Consult to Cardiology [CONS] Routine Comment: Consulting Provider: Cardiology Marce Reason for Consult: Acute HF Call Completed: No Consult to Pulmonology [CONS] Routine Consulting Provider: Pulm Crit Care & Sleep Marce Reason for Consult: Respiratory failure Call Completed: No Discharging clinician: Johann Cui Anticipated date of transfer: 04/22/17 Receiving physician/facility: [facility] Transfer Discharge Sum: A/P - Plan Disposition: Transfer Critical Access Hosp Transfer Discharge Sum: Hosp Hospital course: 56-year-old female who presented to the emergency department with a chief complaint of shortness of breath. According to patient's , approximately 8:15 PM, patient was lying in bed and screamed for help, and planning that her chest hurt and that she was unable to breathe. When EMS arrived, patient was questioning her chest claiming she could not breathe. O2 sat on room air was 80%. She was placed on nonrebreather mask 15 L of O2; sats improved to 96%. EKG performed at that time demonstrated ST elevation; she was sent to the emergency department. On transport, patient's mental status began to decline and she was only groaning, unable to answer questions. Alert pain but not verbal stimuli. Marquetry Worker on-call, Dr. Bhakta, was notified about the STEMI alert, which was called at [id number]. Dr. Bahkta stated that this was most likely due to old changes; recommended treating medically. CTA of chest was obtained due to patient's continued shortness of breath. Upon arrival to the emergency department, patient's vital signs were: Temperature is 99.4, pulse was 114, respiratory rate was 20/m, and blood pressure was 90/60. O2 sat was 98. Upon evaluation, patient had a GCS of 8. Patient was intubated. CTA demonstrated likely pleural effusions, possibly related to CHF. No signs of pulmonary embolus. Basic labs illustrated pH of 6.8 with an elevated CO2. Elevated white count without left shift. Patient was given IV fluids. Repeat ABG demonstrated pH of 7.02. Likely due to respiratory acidosis. Patient's troponin increased after admission. Initial troponin was 0.06; this subsequently increased to 0.86. Left heart catheterization was performed on . Per cardiac catheter report: Patient has severe three-vessel coronary artery disease. Left ventricle has contractility ejection fraction of 25%. - Time Spent with Patient Total time spent providing and/or coordinating transfer services: Transfer Discharge Sum: Exam - Constitutional Vitals: Vital Signs Temp Pulse Resp BP Pulse Ox 04/22/17 16:08 12 108/79 100 04/22/17 16:00 97.6 F 67 12 109/75 100 04/22/17 14:24 64 12 91/56 94 04/22/17 13:00 81 12 100/68 99 04/22/17 12:25 12 100/73 99 04/22/17 12:20 97.7 F 04/22/17 12:00 97.7 F 65 12 108/67 96 04/22/17 11:28 12 110/67 96 04/22/17 11:00 67 12 110/67 99 04/22/17 10:00 13 13 112/64 96 04/22/17 09:25 13 105/71 96 04/22/17 09:00 71 20 111/81 100 04/22/17 08:48 97.1 F L 04/22/17 08:00 97.1 F L 87 22 113/77 96 04/22/17 07:31 20 110/79 97 04/22/17 07:00 72 14 114/79 94 04/22/17 06:00 77 12 116/82 97 04/22/17 05:45 12 115/73 97 04/22/17 05:00 69 12 114/74 97 04/22/17 04:50 96.4 F L 04/22/17 04:00 68 12 112/95 98 04/22/17 03:10 12 109/85 96 04/22/17 03:00 75 12 109/85 96 04/22/17 02:00 73 18 92/63 100 04/22/17 01:30 12 106/69 97 04/22/17 01:00 74 20 103/66 99 04/22/17 00:08 96.8 F L 04/22/17 00:00 90 18 102/81 99 04/21/17 23:38 12 113/71 95 04/21/17 23:00 97 20 97/76 99 04/21/17 22:00 70 12 96/70 95 04/21/17 21:25 12 94/64 95 04/21/17 21:00 72 12 95/65 95 04/21/17 20:00 80 12 94/68 95 04/21/17 19:47 13 94/68 98 04/21/17 19:00 84 15 107/81 99 04/21/17 18:31 12 98 04/21/17 18:15 85 12 103/74 98 04/21/17 18:00 85 16 103/74 98 04/21/17 17:00 85 12 85/70 99 Intake and Output 04/22/17 04/22/17 04/22/17 07:59 15:59 23:59 Intake Total 266 / 266 350 / 350 Output Total 385 / 385 700 / 700 Balance -119 / -119 -350 / -350 Intake: IV Fluids 266 / 266 350 / 350 PRECEDEX Premix 400 mcg In 100 100 / 100 100 / 100 ml @ 0.2 MCG/KG/HR 3.175 mls/hr IVC .Q24H YESY Rx#:[id number] FentaNYL (PF) 1,000 MCG In 0.9 100 / 100 200 / 200 % Sodium Chloride 80 ML @ 50 MCG/HR 5 mls/hr IVC CONT YESY Rx #:[id number] Heparin 25,000 UNIT/500 ML D5W 66 / 66 50 / 50 25,000 unit In 500 ml @ 12 UNIT /KG/HR 13.224 mls/hr IVC .Q24H YESY Rx#:[id number] Oral 0 / 0 Output: Catheter 325 / 325 700 / 700 Gastric Drainage 60 / 60 Other: Weight 55.1 kg Blood Glucose* 127 161 Patient Weight 04/22/17 23:59 Weight 55.1 kg <Charbel Castillo M - Last Filed: 04/23/17 09:44> Date of Encounter: 04/23/17 Transfer Discharge Sum: Med - Medications Active and Home Medications: Home Medications Carbidopa/Levodopa [Carbidopa-Levodopa 10-100 Tab] 1 tab PO TID 04/20/17 [ History Confirmed 04/20/17] Gabapentin [Neurontin] 1,200 mg PO TID 04/20/17 [History Confirmed 04/20/17] Nicotine Patch [Nicoderm] 21 mg TD DAILY 04/20/17 [History Confirmed 04/20/17] Omeprazole [PriLOSEC] 20 mg PO DAILY 04/20/17 [History Confirmed 04/20/17] OxyCODONE Immed Rel [Roxicodone 10 MG] 10 mg PO TID PRN 04/20/17 [History Confirmed 04/20/17] Transfer Discharge Sum: Data Procedures and tests throughout hospitalization: Pending Orders 04/21/17 01:06 Glucose, blood poc measurement [RC] .Q4 Hypoglycemia Treatment Orders [RC] .once 04/21/17 01:07 Consult to Cardiology [CONS] Routine Consult to Pulmonology [CONS] Routine 04/21/17 01:45 Sputum Culture [Culture,Sputum with Gram Stain] [RM] Stat 04/21/17 03:57 Admit as Inpatient Routine 04/21/17 04:54 Assess for bleeding [RC] .PER UNIT PROTOCOL Communication order [RC] .PRN Notify provider [RC] .PRN 04/22/17 16:06 Bed rest w/bathroom privileges [RC] .ONCE Communication order [RC] ONCE Sheath management 1 [RC] ONCE Vital Signs Assessment [RC] Q4H Advance Diet as Tolerated Routine 04/22/17 17:26 Assess for bleeding [RC] .PER UNIT PROTOCOL Assess neurologic status [RC] q4h Communication order [RC] .PRN Communication order [RC] CONT Notify provider [RC] .PRN Activated Partial Thrombo Time [COAG] Routine Complete Blood Count w/o Diff [HEME] Routine Prothrombin Time INR [COAG] Routine - Impressions ITS Impressions Echocardiogram 04/21/17 01:07 Impressions: LVEF 25%. Severely reduced LV systolic function with regional variations (see diagram below) that represent LAD territory. Diastolic dysfunction with elevated filling pressures. Definity echo contrast was used. There is no LV thrombus. Probably normal RV size. Function is mildly reduced. Mild mitral regurgitation. Mild tricuspid regurgitation. No pulmonary hypertension by TR gradient, 23 mmHg. There is a small pericardial effusion present along the inferior border of the RV. No tamponade. No prior echo for comparison. Abnormal findings communicated to ordering provider. Left Ventricular Wall Motion: Rest Echo Findings The apex, apical inferior, apical anterior, mid anterior, apical septal, mid inferior septal, apical lateral, mid anterior septal and basal anterior septal house were hypokinetic. The mid inferior lateral and basal inferior lateral house were not visualized. Findings: Study Quality * Technically sub-optimal due to clinical status. Patient supine on mechanical ventilation. ECG Findings * Normal sinus rhythm. PACs. Left Ventricle * LVEF 25%. * LV is not dilated. * Normal LV wall thickness. * Diastolic dysfunction with elevated filling pressures. * Definity echo contrast was used. * There is no LV thrombus. Right Ventricle * Probably normal RV size. Function is mildly reduced. Left Atrium * Normal left atrial size. Right Atrium * Normal right atrial size. Aortic Valve * No aortic regurgitation. * Aortic valve not well visualized. * No aortic stenosis. Mitral Valve * Mild mitral annular calcification * Normal mitral valve structure. * No mitral stenosis. * Mild mitral regurgitation. Tricuspid Valve * Tricuspid valve not well visualized. * Mild tricuspid regurgitation. Pulmonic Valve * Pulmonic valve is not well visualized. * No pulmonic stenosis. * No pulmonic regurgitation. Pulmonary Artery * Pulmonary artery not well visualized. Aorta * Normally sized aortic root. Pericardium * There is a small pericardial effusion present along the inferior border of the RV. No tamponade. Interatrial Septum * No evidence of PFO by color Doppler. IVC * The IVC is not dilated. Chest X-Ray 04/21/17 05:03 IMPRESSION: Decreased interstitial edema. No substantial change in bilateral effusions allowing for differences in patient positioning. Retrocardiac opacities favored to reflect atelectasis given short interval development. Appropriate endotracheal tube positioning. D/ / Dean Ma / Dean Ma Interpreting Provider: Dean Ma Transfer Discharge Sum: Prov Date of admission: 04/20/17 23:43 Primary care physician: Griselda Richey CNP Consults: 04/21/17 01:07 Consult to Cardiology [CONS] Routine Comment: Consulting Provider: Cardiology Marce Reason for Consult: Acute HF Call Completed: No Consult to Pulmonology [CONS] Routine Consulting Provider: Pulm Crit Care & Sleep Marce Reason for Consult: Respiratory failure Call Completed: No Receiving physician/facility: I examined this patient and my medical decision-making was reviewed with the Resident Physician. I agree with the documented findings, disposition and treatment plan as described except to the extent set forth below. Patient was admitted with acute respiratory failure and pulmonary edema subsequently she had cardiac workup done with significant abnormalities that needed to be transferred to [place] because capacitor assembler and cardiothoracic surgeon had to [place] recommended transfer. Patient was kept intubated and overall hemodynamically was stable for transfer. Transfer Discharge Sum: Hosp Hospital course: Ms. Humphrey is a 56 year old female - Time Spent with Patient Total time spent providing and/or coordinating transfer services: Transfer Discharge Sum: Exam - Constitutional Vitals: Vital Signs Temp Pulse Resp BP Pulse Ox 04/22/17 18:00 65 12 110/66 99 04/22/17 17:03 12 110/69 99 04/22/17 17:00 67 12 110/69 100 04/22/17 16:45 68 12 108/71 100 04/22/17 16:08 12 108/79 100 04/22/17 16:00 97.6 F 67 12 109/75 100 04/22/17 14:24 64 12 91/56 94 04/22/17 13:00 81 12 100/68 99 04/22/17 12:25 12 100/73 99 04/22/17 12:20 97.7 F 04/22/17 12:00 97.7 F 65 12 108/67 96 04/22/17 11:28 12 110/67 96 04/22/17 11:00 67 12 110/67 99 04/22/17 10:00 13 13 112/64 96 04/22/17 09:25 13 105/71 96 04/22/17 09:00 71 20 111/81 100 04/22/17 08:48 97.1 F L 04/22/17 08:00 97.1 F L 87 22 113/77 96 04/22/17 07:31 20 110/79 97 04/22/17 07:00 72 14 114/79 94 04/22/17 06:00 77 12 116/82 97 04/22/17 05:45 12 115/73 97 04/22/17 05:00 69 12 114/74 97 04/22/17 04:50 96.4 F L 04/22/17 04:00 68 12 112/95 98 04/22/17 03:10 12 109/85 96 04/22/17 03:00 75 12 109/85 96 04/22/17 02:00 73 18 92/63 100 04/22/17 01:30 12 106/69 97 04/22/17 01:00 74 20 103/66 99 04/22/17 00:08 96.8 F L 04/22/17 00:00 90 18 102/81 99 04/21/17 23:38 12 113/71 95 04/21/17 23:00 97 20 97/76 99 04/21/17 22:00 70 12 96/70 95 04/21/17 21:25 12 94/64 95 04/21/17 21:00 72 12 95/65 95 04/21/17 20:00 80 12 94/68 95 04/21/17 19:47 13 94/68 98 Intake and Output 04/22/17 04/22/17 04/22/17 07:59 15:59 23:59 Intake Total 266 / 266 350 / 350 Output Total 385 / 385 700 / 700 Balance -119 / -119 -350 / -350 Intake: IV Fluids 266 / 266 350 / 350 PRECEDEX Premix 400 mcg In 100 100 / 100 100 / 100 ml @ 0.2 MCG/KG/HR 3.175 mls/hr IVC .Q24H YESY Rx#:[id number] FentaNYL (PF) 1,000 MCG In 0.9 100 / 100 200 / 200 % Sodium Chloride 80 ML @ 50 MCG/HR 5 mls/hr IVC CONT YESY Rx #:[id number] Heparin 25,000 UNIT/500 ML D5W 66 / 66 50 / 50 25,000 unit In 500 ml @ 12 UNIT /KG/HR 13.224 mls/hr IVC .Q24H YESY Rx#:[id number] Oral 0 / 0 Output: Catheter 325 / 325 700 / 700 Gastric Drainage 60 / 60 Other: Weight 55.1 kg Blood Glucose* 127 161 Patient Weight 04/22/17 23:59 Weight 55.1 kg
[2017-04-22 18:42] VITALS: BP 110/66
== END 2017-04-22 19:18 | disposition critical access hospital (66) | DRG 208 ==
LOC: EMEROO 21:03 → ICNU 23:43
PROVIDERS: ADMIT Internal Medicine; ATTEND Hospitalist

== ENCOUNTER 2017-11-23 11:10 | Observation (INO) ==
[2017-11-23] MEDS ORDERED: Ondansetron 4 MG/2 ML VIAL IVP ONE (11:17)
[2017-11-23] MEDS ORDERED: Aspirin 81 MG TAB.CHEW PO ONE (11:17)
--- NOTE | 2017-11-23 11:45 | Emergency Department Note ---
Disposition Clinical Impression: Acute vomiting CHF exacerbation Qualifiers: Heart failure type: unspecified Qualified Code(s): I50.9 - Heart failure, unspecified Disposition: Admitted As Inpatient Condition: Good Referrals: Griselda Richey CNP [Primary Care Provider] - Forms: ED Satisfaction Letter Time of Disposition: 13:04 General Adult HPI - General Chief complaint: ED Nausea/Vomiting/Diarrhea Stated complaint: PACO,Vomiting,EKG Changes Time Seen by Provider: 11/23/17 11:16 Source: patient Mode of arrival: ambulatory Limitations: no limitations Nursing Notes Reviewed: Yes Vital Signs Reviewed: Yes - History of Present Illness HPI Narrative: 57 year old female prsenset to the ED with complaints of vomiting and PACO and was recently seen by her PCP today for these symptomat and appears to have some EKG changes in the precordial leads although when compared to previous EKGs they are at baseline. Jose has a history of 4 cardiac stents and denies chest pressure and pain at this time although she has never experienced chest pain or pressure in the past when she required cardiac stents. Patient states that sine Wednesday she has been nauseated and vomitting and is unsure of the reason why as she cannot remember eating suspicious food and has not been around anyone else with simlar symptoms. She also denies abdominal pian. Jose is now experenicng dyspnea on exertion and diaphoresis. She has multuple reisk facotrs for ACS . Denies fevers, cough, congestion, bloody urine or stool, diarrhea or vaginal bleeding or discharge Pain Scale: 5 - Related Data Home Medications Medication Instructions Recorded Confirmed Carbidopa/Levodopa 1 tab PO TID 04/20/17 11/23/17 [Carbidopa-Levodopa 10-100 Tab] Gabapentin [Neurontin] 1,200 mg PO TID 04/20/17 11/23/17 Omeprazole [PriLOSEC] 20 mg PO DAILY 04/20/17 11/23/17 OxyCODONE Immed Rel [Roxicodone 10 10 mg PO TID PRN 04/20/17 11/23/17 MG] Atorvastatin Calcium 80 mg PO HS 06/30/17 11/23/17 Clopidogrel [Plavix] 75 mg PO DAILY 06/30/17 11/23/17 Lisinopril [Zestril] 5 mg PO DAILY 06/30/17 11/23/17 Potassium Chloride [Klor-Con 10] 10 meq PO DAILY 06/30/17 11/23/17 Amitriptyline [Elavil] 25 mg PO HS 11/23/17 11/23/17 Previous Rx's Medication Instructions Recorded Aspirin 81 mg PO DAILY 14 Days #14 tab.chew 07/02/17 Metoprolol XL (24 HR) Succ [Toprol 25 mg PO DAILY 14 Days #14 07/02/17 Xl] tab.er.24h Allergies Allergy/AdvReac Type Severity Reaction Status Date / Time No Known Allergies Allergy Verified 11/23/17 12:36 Constitutional: Denies: fever, chills, weakness, weight change Eyes: Denies: eye pain, eye discharge, vision change ENT ED: Denies: ear pain, throat pain, dental pain, hearing loss, epistaxis, congestion, dysphagia Cardiovascular: Denies: chest pain, palpitations, dyspnea on exertion, edema, syncope Respiratory: Reports: dyspnea. Denies: cough, wheezes, hemoptysis, stridor Gastrointestinal: Reports: nausea, vomiting. Denies: abdominal pain, diarrhea, constipation, hematemesis, melena, hematochezia Genitourinary: Denies: dysuria, frequency, hematuria, discharge Musculoskeletal: Denies: back pain, neck pain, arthralgia, myalgia Integumentary: Denies: rash, abrasion, lesions Neurological: Denies: headache, weakness, numbness, paresthesias, confusion, abnormal gait, vertigo Psychiatric: Denies: anxiety, depression, suicidal thoughts, homicidal thoughts , auditory hallucinations, visual hallucinations Endocrine: Denies: fatigue Hematological/Lymphatic: Denies: easy bleeding, easy bruising Allergic/Immunologic: Denies: facial swelling, urticaria Past Medical History - Past Medical History Medical history: Reports: cardiomyopathy, CHF, coronary artery disease, hyperlipidemia, myocardial infarction, other Surgical history: Reports: other Psychiatric history: Reports: no psych history - Social History Smoking Status: Former smoker Smokeless Tobacco Status: No Alcohol use: Reports: none Drug use: Reports: none Physical Exam - General Limitations: no limitations General appearance: alert, in no apparent distress - Head Head exam: atraumatic, normocephalic, normal inspection - Eye Eye exam: Present: normal appearance, PERRL, EOMI - Expanded Eye Exam Pupils: Left: reactive - ENT ENT exam: normal exam, normal oropharynx, mucous membranes moist - Expanded ENT Exam External ear exam: Present: normal external inspection Mouth exam: Present: normal external inspection Teeth exam: Present: normal inspection Throat exam: Present: normal inspection - Neck Neck exam: Present: normal inspection, full ROM, trachea midline - Chest Chest inspection: Present: normal inspection, symmetric chest wall rise - Respiratory Respiratory exam: Present: normal lung sounds bilaterally - Cardiovascular Cardiovascular exam: Present: regular rate, normal rhythm, normal heart sounds - Abdominal Exam Abdominal exam: Present: soft, Non-Tender. Absent: tenderness, distention, guarding, rebound, rigidity - Extremities Exam Extremities exam: Present: normal inspection, full ROM. Absent: tenderness, pedal edema - Expanded Upper Extremity Exam Shoulder exam: Present: normal inspection, full ROM Arm exam: Present: normal inspection, full ROM Elbow exam: Present: normal inspection, full ROM Forearm/Wrist exam: Present: normal inspection, full ROM Hand exam: Present: normal inspection, full ROM Vascular exam: Normal: capillary refill, radial pulse - Expanded Lower Extremity Exam Hip/Pelvis exam: Present: normal inspection, full ROM Upper leg exam: Present: normal inspection, full ROM Knee exam: Present: normal inspection, full ROM Lower leg exam: Present: normal inspection, full ROM Ankle exam: Present: normal inspection, full ROM Foot/toe exam: Present: normal inspection, full ROM Neurovascular/Tendon exam: Absent: motor deficit, sensory deficit, tendon deficit - Back Exam Back exam: Present: normal inspection, full ROM. Absent: tenderness - Neurological Exam Neurological exam: Present: alert, oriented X3 - Expanded Neurological Exam Patient oriented to: Present: person, place, time Coma Scale Eye Opening: Spontaneous Coma Scale Motor Response: Obeys Commands Coma Scale Verbal Response: Oriented Coma Scale Total: 15 - Psychiatric Psychiatric exam: Present: normal affect, normal mood - Skin Skin exam: Present: warm, dry, intact, normal color Course Course Narrative: we will do abdominal and cardiac workup on jose and treat jose with zofran and ASA therapy with IV placment. She will likely be admitted to the hospital. - Reevaluation(s) Reevaluation #1: updated [facility] on results. they are agreeable to admission. lasix therapy given for elevated BNP. Time: 13:04 - Consultations Consultation #1: discussed case with Dr. Montalvo and he accepts patinet for admission Time: 13:03 Vital Signs Temperature 97.6 F 11/23/17 11:14 Pulse Rate 99 11/23/17 11:14 Respiratory Rate 18 11/23/17 11:14 Blood Pressure 141/82 11/23/17 11:14 O2 Sat by Pulse Oximetry 98 11/23/17 11:14 Temperature 97.6 F 11/23/17 11:43 Pulse Rate 85 11/23/17 11:48 Respiratory Rate 14 11/23/17 11:48 Blood Pressure 137/89 11/23/17 11:48 O2 Sat by Pulse Oximetry 98 11/23/17 11:48 Oxygen Delivery Oxygen Delivery Room Air Medical Decision Making - Medical Records Medical records reviewed: Yes I reviewed the patient's medical records. - Lab Data Lab results reviewed: Yes I reviewed the patient's lab results. Result diagrams: 11/23/17 12:04 11/23/17 12:04 Lab Results 11/23/17 11/23/17 11/23/17 Range/Units 12:04 12:04 12:04 WBC 7.8 (4.3-11.1) K/mcL RBC 4.18 (3.82-4.97) M/mcL Hgb 12.6 (11.5-15.4) g/dL Hct 37.5 (35.3-44.9) % MCV 89.7 (83.0-100.0) fL MCH 30.1 (28.0-33.3) pg MCHC 33.6 (31.6-35.5) g/dL RDW 15.9 H (11.5-14.5) % Plt Count 176 (140-400) K/mcL MPV 11.2 (9.4-12.4) fL Immature Gran % 0.4 (0-4) % Seg Neutrophils % 78.8 % Lymphocytes % 14.5 % Monocytes % 5.4 % Eosinophils % 0.6 % Basophils % 0.3 % Neutrophils # 6.2 (1.6-8.9) K/mcL Lymphocytes # 1.1 (0.6-4.6) K/mcL Monocytes # 0.4 (0.0-1.3) K/mcL Eosinophils # 0.1 (0.0-0.6) K/mcL Basophils # 0.0 (0.0-0.2) K/mcL PT 11.4 (9.4-12.1) Seconds INR 1.0 APTT 33.9 (26.0-36.0) Seconds Sodium (136-145) mEq/L Potassium (3.5-5.1) mEq/L Chloride (98-107) mEq/L Carbon Dioxide (23-29) mEq/L BUN (6-20) mg/dL Creatinine (0.60-1.20) mg/dL Est GFR ( Amer) (> 60) Est GFR (Non-Af Amer) (> 60) BUN/Creatinine Ratio (6-26) Glucose (70-105) mg/dL Calculated Osmolality (280-300) Calcium (8.6-10.3) mg/dL Total Bilirubin (0.3-1.0) mg/dL Direct Bilirubin (0.0-0.2) mg/dL Indirect Bilirubin (0.0-1.2) mg/dL AST (13-39) Units/L ALT (7-52) Units/L Alkaline Phosphatase (34-104) Units/L Troponin I (< 0.04) ng/mL B-Natriuretic Peptide 1527 H (Less than 100) pg/mL Serum Total Protein (6.4-8.9) g/dL Albumin (3.5-5.7) g/dL Globulin (2.4-3.5) g/dL Albumin/Globulin Ratio (1.1-2.2) Lipase (11-82) Units/L 08/21/18 Range/Units 12:04 WBC (4.3-11.1) K/mcL RBC (3.82-4.97) M/mcL Hgb (11.5-15.4) g/dL Hct (35.3-44.9) % MCV (83.0-100.0) fL MCH (28.0-33.3) pg MCHC (31.6-35.5) g/dL RDW (11.5-14.5) % Plt Count (140-400) K/mcL MPV (9.4-12.4) fL Immature Gran % (0-4) % Seg Neutrophils % % Lymphocytes % % Monocytes % % Eosinophils % % Basophils % % Neutrophils # (1.6-8.9) K/mcL Lymphocytes # (0.6-4.6) K/mcL Monocytes # (0.0-1.3) K/mcL Eosinophils # (0.0-0.6) K/mcL Basophils # (0.0-0.2) K/mcL PT (9.4-12.1) Seconds INR APTT (26.0-36.0) Seconds Sodium 139 (136-145) mEq/L Potassium 4.0 (3.5-5.1) mEq/L Chloride 102 (98-107) mEq/L Carbon Dioxide 29 (23-29) mEq/L BUN 17 (6-20) mg/dL Creatinine 0.88 (0.60-1.20) mg/dL Est GFR ( Amer) > 60 (> 60) Est GFR (Non-Af Amer) > 60 (> 60) BUN/Creatinine Ratio 19 (6-26) Glucose 118 H (70-105) mg/dL Calculated Osmolality 291 (280-300) Calcium 9.9 (8.6-10.3) mg/dL Total Bilirubin 0.7 (0.3-1.0) mg/dL Direct Bilirubin 0.2 (0.0-0.2) mg/dL Indirect Bilirubin 0.5 (0.0-1.2) mg/dL AST 14 (13-39) Units/L ALT 13 (7-52) Units/L Alkaline Phosphatase 111 H (34-104) Units/L Troponin I 0.03 (< 0.04) ng/mL B-Natriuretic Peptide (Less than 100) pg/mL Serum Total Protein 7.3 (6.4-8.9) g/dL Albumin 4.7 (3.5-5.7) g/dL Globulin 2.6 (2.4-3.5) g/dL Albumin/Globulin Ratio 1.8 (1.1-2.2) Lipase 33 (11-82) Units/L - Radiology Data Radiology results reviewed: Yes I reviewed the patient's radiology results. - EKG Data EKG #1 EKG attestation: Yes I reviewed and interpreted this EKG. EKG results narrative: NSR with rate of 90, with sinus arrythmia. LVH, mild wellens type morphology to leads V1-6, present on previous ekg from 10/01/17. NO STEMI. normal intervals
[2017-11-23 12:22] LABS: Basophils % 0.3 %; Eosinophils # 0.1 K/mcL (0.0-0.6); Eosinophils % 0.6 %; Hematocrit 37.5 % (35.3-44.9); Hemoglobin 12.6 g/dL (11.5-15.4); Immature Granulocytes % 0.4 % (0-4); Lymphocytes # 1.1 K/mcL (0.6-4.6); Lymphocytes % 14.5 %; Mean Corpuscular HGB Conc 33.6 g/dL (31.6-35.5); Mean Corpuscular Hemoglobin 30.1 pg (28.0-33.3); Mean Corpuscular Volume 89.7 fL (83.0-100.0); Mean Platelet Volume 11.2 fL (9.4-12.4); Monocytes # 0.4 K/mcL (0.0-1.3); Monocytes % 5.4 %; Neutrophils # 6.2 K/mcL (1.6-8.9); Platelet Count 176 K/mcL (140-400); Red Blood Count 4.18 M/mcL (3.82-4.97); Red Cell Distribution Width 15.9 % (11.5-14.5); Segmented Neutrophils % 78.8 %
[2017-11-23 12:30] LABS: Prothrombin Time 11.4 Seconds (9.4-12.1)
[2017-11-23 12:32] LABS: Activated Partial Thrombo Time 33.9 Seconds (26.0-36.0)
[2017-11-23 12:36] LABS: Troponin I 0.03 ng/mL (< 0.04)
[2017-11-23 12:42] LABS: Alanine Aminotransferase 13 Units/L (7-52); Albumin 4.7 g/dL (3.5-5.7); Albumin/Globulin Ratio 1.8 (1.1-2.2); Alkaline Phosphatase 111 Units/L (34-104); Aspartate Amino Transferase 14 Units/L (13-39); BUN/Creatinine Ratio 19 (6-26); Bilirubin,Direct 0.2 mg/dL (0.0-0.2); Bilirubin,Indirect 0.5 mg/dL (0.0-1.2); Bilirubin,Total 0.7 mg/dL (0.3-1.0); Blood Urea Nitrogen 17 mg/dL (6-20); Calcium 9.9 mg/dL (8.6-10.3); Carbon Dioxide 29 mEq/L (23-29); Chloride 102 mEq/L (98-107); Globulin 2.6 g/dL (2.4-3.5); Glucose 118 mg/dL (70-105); Lipase 33 Units/L (11-82); Osmolality,Calculated 291 (280-300); Sodium 139 mEq/L (136-145); Total Protein 7.3 g/dL (6.4-8.9); eGFR For Non-African Americans > 60 (> 60)
[2017-11-23] MEDS ORDERED: Furosemide 40 MG/4 ML VIAL IVP ONE (12:57)
[2017-11-23] MEDS ORDERED: Naloxone 0.4 MG/ML INJ IVP PRN (14:54)
--- NOTE | 2017-11-23 15:05 | Internal Med History&Physical ---
Date of Encounter: 11/23/17 Time of Encounter: 14:15 Internal Medicine - H&P: HPI Chief complaint: Intractable nausea and vomiting Admitted From: Emergency Dept Plans for Post Hospital Care: Home History of present illness: Ms. Humphrey is a 57 year old female patient with a history of coronary artery disease, Parkinson's disease who was sent to her the ED by her primary care provider after she was seen in the clinic with complaints of nausea and vomiting and shortness of breath. There was concern about some EKG changes. However on evaluation in the ER, changes were present on her prior EKGs and were not new. She does report intractable nausea and vomiting that began on Wednesday. Her symptoms improved on Wednesday but since this morning she has been having nausea and vomiting again. She reports that her symptoms initially began after she developed intense gastric reflux. She denies any chest pain or palpitations. She has previously had cardiac stents and did not experience any chest pain during the period when she had her stents placed. She also developed diaphoresis during her current episode. She did have exertional dyspnea. This has improved after she received Lasix in the ER. She denies any fevers or cough. No diarrhea or constipation. No hematemesis or melena. Past Med Surg Social Fam HX - Past Medical History Medical history: cardiomyopathy, CHF, coronary artery disease, hyperlipidemia, myocardial infarction, other Additional medical history: parkinsons Psychiatric history: no psych history - Past Surgical History Surgical History: other Additional surgical history: Multiple skin grafts - Social History Smoking Status: Former smoker Smokeless Tobacco Status: No Alcohol use: none Drug use: none - Additional Family History Additional family history: Family history reviewed and found to be noncontributory at this time Internal Medicine - H&P: Meds Carbidopa/Levodopa [Carbidopa-Levodopa 10-100 Tab] 1 tab PO TID 04/20/17 [ History] Gabapentin [Neurontin] 1,200 mg PO TID 04/20/17 [History] Omeprazole [PriLOSEC] 20 mg PO DAILY 04/20/17 [History] OxyCODONE Immed Rel [Roxicodone 10 MG] 10 mg PO TID PRN 04/20/17 [History] Atorvastatin Calcium 80 mg PO HS 06/30/17 [History] Clopidogrel [Plavix] 75 mg PO DAILY 06/30/17 [History] Lisinopril [Zestril] 5 mg PO DAILY 06/30/17 [History] Potassium Chloride [Klor-Con 10] 10 meq PO DAILY 06/30/17 [History] Aspirin 81 mg PO DAILY 14 Days #14 tab.chew 07/02/17 [Rx] Metoprolol XL (24 HR) Succ [Toprol Xl] 25 mg PO DAILY 14 Days #14 tab.er.24h [Rx] Amitriptyline [Elavil] 25 mg PO HS 11/23/17 [History] 3 Allergy/AdvReac Type Severity Reaction Status Date / Time No Known Allergies Allergy Verified 11/23/17 12:36 All Systems PM: A 10-system review of systems was performed and is negative for pertinent findings except as documented above in the HPI. - Constitutional Constitutional: no chills, no fever(s), no night sweats - EENT Eyes: no change in vision, no discharge, no pain, no photophobia Ears: no ear discharge, no ear pain, no tinnitus Nose, mouth and throat: no dysphagia, no nasal discharge, no neck pain, no sore throat - Cardiovascular Cardiovascular ROS IM: dyspnea on exertion, no chest pain, no diaphoresis, no dyspnea, no lightheadedness, no palpitations, no syncope - Respiratory Respiratory: dyspnea - Gastrointestinal Gastrointestinal: heartburn, nausea, vomiting, no abdominal pain, no diarrhea, no hematemesis, no hematochezia, no melena - Genitourinary Genitourinary: no change in urinary stream, no dysuria, no flank pain, no hematuria - Musculoskeletal Musculoskeletal ROS IM: no numbness, no tingling - Integumentary Integumentary IM: no rash, no unusual bruising - Neurological Neurological ROS: no confusion, no convulsions, no focal weakness, no numbness, no tingling, no tremor(s) - Hematologic/Lymphatic Hematologic/Lymphatic: no easy bruising - Constitutional Vitals: Temp Pulse Resp BP Pulse Ox 97.4 F L 84 15 137/79 94 11/23/17 13:58 11/23/17 13:58 11/23/17 13:58 11/23/17 13:58 11/23/17 13:58 General appearance: Present: cooperative, A&O X 3, pleasant, answers questions appropriately Exam: Patient is awake and alert. She does have resting tremors and head movements related to Parkinson's disease - Head Head exam: Present: atraumatic, normocephalic - Eye Eye exam: Present: EOMI, PERRL, conjuntiva pink, sclera anicteric - Neck Neck exam general surgery: Present: supple, trachea midline. Absent: lymphadenopathy - Respiratory Respiratory exam: Present: CTAB. Absent: accessory muscle use, rales, rhonchi, wheezes - Cardiovascular Cardiovascular exam: Present: RRR, +S1, +S2. Absent: diastolic murmur, gallop, rubs, systolic murmur - GI/Abdominal GI/Abdominal exam: Present: normal bowel sounds, soft, no peritoneal signs. Absent: distended, tenderness - Extremities Exam Extremities exam: Present: warm, radial pulses palpable and symmetrical. Absent : calf tenderness, cyanotic, pedal edema - Neurological Exam Neurological exam: Present: CN II-XII intact, oriented X3, no focal deficits. Absent: facial droop, speech deficit - Skin Skin exam: Present: dry, intact Internal Med - H&P Results - Labs CBC & Chem 7: 11/23/17 12:04 11/23/17 12:04 - Assessment and plan (1) CHF (congestive heart failure) Current Visit: Yes Status: Chronic Assessment and plan: Patient describes exertional dyspnea. She does have a history of systolic congestive heart failure. Her EF was 35% per echocardiogram done in June of this year. Will continue Lasix. Her BNP is actually improved compared to her prior labs. However given her description of exertional dyspnea, place on IV Lasix. Monitor input and output. Daily weights. Qualifiers: Qualified Code(s): I50.21 - Acute systolic (congestive) heart failure (2) Intractable nausea and vomiting Current Visit: Yes Status: Acute Assessment and plan: Patient presenting with intractable nausea and vomiting. We will treat symptomatically. Could be related to reflux esophagitis. Keep on clears for now. Qualifiers: Vomiting type: cyclical vomiting Qualified Code(s): G43.A1 - Cyclical vomiting, intractable (3) CAD (coronary artery disease) Current Visit: Yes Status: Chronic Assessment and plan: Currently not having any chest pain. She does describe exertional dyspnea. We will trend troponins. Continue home medications. Qualifiers: Coronary Disease-Associated Artery/Lesion type: [place] artery [place] vs. transplanted heart: [place] heart Associated angina: angina presence unspecified Qualified Code(s): I25.10 - Atherosclerotic heart disease of [place] coronary artery without angina pectoris (4) DVT prophylaxis Current Visit: Yes Status: Acute Assessment and plan: With subcutaneous heparin (5) GERD (gastroesophageal reflux disease) Current Visit: Yes Status: Chronic Assessment and plan: We will place her on PPI. Qualifiers: Esophagitis presence: esophagitis presence not specified Qualified Code(s) : K21.9 - Gastro-esophageal reflux disease without esophagitis (6) Parkinson disease Current Visit: Yes Status: Chronic Assessment and plan: Continue home medications including carbidopa levodopa - Time Spent With Patient Total time spent is greater than 50% in coordination of care (as documented) at patient's floor/unit and/or counseling patient:
--- NOTE | 2017-11-23 16:14 | Electrocardiograph Report ---
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
[2017-11-23] MEDS: Furosemide 40 MG/4 ML VIAL IVP SCH (16:15)
[2017-11-23] MEDS: *HR* OxyCODONE Immed Rel 5 MG TABLET PO PRN ×2 (16:16→21:00)
[2017-11-23] MEDS ORDERED: Ondansetron 4 MG/2 ML VIAL IVP PRN (16:23)
[2017-11-23] MEDS ORDERED: Ondansetron 4 MG/2 ML VIAL IVP SCH (18:00)
[2017-11-23] MEDS: Pantoprazole 40 MG VIAL IVP SCH (18:14)
[2017-11-23] MEDS: *HR* Heparin 5,000 UNIT/ML VIAL SQ SCH (18:19)
[2017-11-23] MEDS ORDERED: NON-FORMULARY MEDICATION 1 EACH EACH (Gabapentin [Neurontin] 1,200 MG) PO SCH (21:00)
[2017-11-24] MEDS: *HR* Heparin 5,000 UNIT/ML VIAL SQ SCH (05:50)
[2017-11-24] MEDS: Pantoprazole 40 MG VIAL IVP SCH (05:50)
[2017-11-24] MEDS: *HR* OxyCODONE Immed Rel 5 MG TABLET PO PRN ×2 (05:57→10:42)
[2017-11-24 06:04] LABS: Basophils % 0.6 %; Eosinophils # 0.2 K/mcL (0.0-0.6); Eosinophils % 3.4 %; Hematocrit 38.4 % (35.3-44.9); Hemoglobin 12.9 g/dL (11.5-15.4); Immature Granulocytes % 0.2 % (0-4); Lymphocytes # 1.6 K/mcL (0.6-4.6); Lymphocytes % 30.3 %; Mean Corpuscular HGB Conc 33.6 g/dL (31.6-35.5); Mean Corpuscular Hemoglobin 29.7 pg (28.0-33.3); Mean Corpuscular Volume 88.5 fL (83.0-100.0); Mean Platelet Volume 10.9 fL (9.4-12.4); Monocytes # 0.5 K/mcL (0.0-1.3); Monocytes % 10.3 %; Neutrophils # 2.9 K/mcL (1.6-8.9); Platelet Count 172 K/mcL (140-400); Red Blood Count 4.34 M/mcL (3.82-4.97); Red Cell Distribution Width 15.8 % (11.5-14.5); Segmented Neutrophils % 55.2 %
[2017-11-24 06:31] LABS: BUN/Creatinine Ratio 18 (6-26); Blood Urea Nitrogen 19 mg/dL (6-20); Calcium 9.8 mg/dL (8.6-10.3); Carbon Dioxide 30 mEq/L (23-29); Chloride 98 mEq/L (98-107); Glucose 98 mg/dL (70-105); Osmolality,Calculated 288 (280-300); Potassium 3.6 mEq/L (3.5-5.1); Sodium 138 mEq/L (136-145); eGFR For Non-African Americans 54 (> 60)
[2017-11-24] MEDS ORDERED: Aspirin 81 MG TAB.CHEW PO SCH (09:00)
[2017-11-24] MEDS ORDERED: Metoprolol XL (24 HR) Succ 25 MG TAB.ER.24H PO SCH (09:00)
[2017-11-24] MEDS: Furosemide 40 MG/4 ML VIAL IVP SCH (09:30)
[2017-11-24 11:16] VITALS: BP 114/73
--- NOTE | 2017-11-24 11:58 | Discharge Summary ---
Date of Encounter: 11/24/17 Time of Encounter: 11:56 - Discharge Diagnosis (1) Gastroenteritis Priority: Primary Status: Acute (2) CHF (congestive heart failure) Priority: Secondary Status: Chronic Qualifiers: Qualified Code(s): I50.21 - Acute systolic (congestive) heart failure (3) Parkinson disease Priority: Secondary Status: Chronic (4) GERD (gastroesophageal reflux disease) Priority: Primary Status: Acute Qualifiers: Esophagitis presence: esophagitis presence not specified Qualified Code(s) : K21.9 - Gastro-esophageal reflux disease without esophagitis (5) CAD (coronary artery disease) Priority: Secondary Status: Chronic Qualifiers: Coronary Disease-Associated Artery/Lesion type: [place] artery [place] vs. transplanted heart: [place] heart Associated angina: angina presence unspecified Qualified Code(s): I25.10 - Atherosclerotic heart disease of [place] coronary artery without angina pectoris Hospital course: Ms. Humphrey is a 57 year old female with PMH CHF, Parkinson's disease, CAD, hypertension and GERD presented to on 11/23/2017 with complaints of nausea and vomiting and SOB. She was placed in observation status for further workup and treatment. She was thought to be in acute CHF exacerbation with shortness of breath and elevated BNP; she received one-time dose of IV Lasix. Chest x-ray was unremarkable. Clinically appeared euvolemic with no lower external edema, no crackles or rails on exam. Her nausea and vomiting resolved with supportive care; patient reported eating a week old tomato dish she suspected that was the cause of the nausea vomiting (reported using fresh tomatoes from garden to make dish approx 1 week ago; patient had eaten said tomato dish on day when sx's started and did not). She likely had a of gastroenteritis. On day of discharge she returned to baseline, no nausea or vomiting recurrence. Tolerating regular diet. No shortness of breath, no chest pain, no abdominal pain. She was discharged home in stable condition with outpatient follow-up Discharge discussed with: patient - Time Spent with Patient Total time spent providing and/or coordinating discharge services: - Discharge Medications Home Medications: Carbidopa/Levodopa [Carbidopa-Levodopa 10-100 Tab] 1 tab PO TID 04/20/17 [ History] Gabapentin [Neurontin] 1,200 mg PO TID 04/20/17 [History] Omeprazole [PriLOSEC] 20 mg PO DAILY 04/20/17 [History] OxyCODONE Immed Rel [Roxicodone 10 MG] 10 mg PO TID PRN 04/20/17 [History] Atorvastatin Calcium 80 mg PO HS 06/30/17 [History] Clopidogrel [Plavix] 75 mg PO DAILY 06/30/17 [History] Lisinopril [Zestril] 5 mg PO DAILY 06/30/17 [History] Potassium Chloride [Klor-Con 10] 10 meq PO DAILY 06/30/17 [History] Aspirin 81 mg PO DAILY 14 Days #14 tab.chew 07/02/17 [Rx] Metoprolol XL (24 HR) Succ [Toprol Xl] 25 mg PO DAILY 14 Days #14 tab.er.24h [Rx] Amitriptyline [Elavil] 25 mg PO HS 11/23/17 [History] Allergies/Adverse Reactions: 3 Allergy/AdvReac Type Severity Reaction Status Date / Time No Known Allergies Allergy Verified 11/23/17 12:36 Date of admission: 11/23/17 13:09 Primary care physician: Griselda Richey CNP Consults: 11/24/17 09:32 Consult to Nurse Navigator [CONS] Routine Comment: CHF Discharging clinician: Salma Hilario Anticipated date of discharge: 11/24/17 - Constitutional Vitals: Temp Pulse Resp BP Pulse Ox 98.3 F 96 15 114/73 95 11/24/17 11:14 11/24/17 11:14 11/24/17 11:14 11/24/17 11:14 11/24/17 11:14 General appearance: Present: cooperative, A&O X 3, pleasant, answers questions appropriately Exam: see below - Head Head exam: Present: atraumatic, normocephalic - Eye Eye exam: Present: PERRL, conjuntiva pink, sclera anicteric Pupils: Present: PERRL - Neck Neck exam general surgery: Present: supple, trachea midline. Absent: lymphadenopathy - Respiratory Respiratory exam: Present: CTAB. Absent: accessory muscle use, rales, rhonchi, wheezes - Cardiovascular Cardiovascular exam: Present: RRR, +S1, +S2. Absent: diastolic murmur, gallop, rubs, systolic murmur - GI/Abdominal GI/Abdominal exam: Present: normal bowel sounds, soft, no peritoneal signs. Absent: distended, tenderness - Extremities Exam Extremities exam: Present: warm, radial pulses palpable and symmetrical. Absent : calf tenderness, cyanotic, pedal edema - Neurological Exam Neurological exam: Present: CN II-XII intact, oriented X3, no focal deficits. Absent: pronater drift, facial droop, speech deficit Additional comments: tremors - Skin Skin exam: Present: dry, intact - Patient Status Disposition: Home, Self-Care Condition: Good Functional capacity at discharge: independent ambulation Overall status at discharge: patient is back to baseline - Discharge Instructions Instructions: Gastroenteritis (DC) Follow Up With: Griselda Richey COMMERCIAL CREDIT ANALYST [Primary Care Provider] - (call for follow-up appt within one week) - Diet and Activity Activity: increase activity as tolerated Diet: advance to your usual diet
== END 2017-11-24 13:16 | disposition home or self-care (01) ==
LOC: 3BNU 11:10 → EMEROOARM 11:10 → 3BNU 13:51
PROVIDERS: ADMIT Internal Medicine; ATTEND Internal Medicine

== ENCOUNTER 2019-08-15 09:00 | Inpatient (IN) ==
[2019-08-15] MEDS ORDERED: Isovue-370 500 ML BOTTLE IVP ONE (09:23)
[2019-08-15] MEDS ORDERED: Pantoprazole 40 MG VIAL IVP STA (09:24)
[2019-08-15] MEDS ORDERED: Ondansetron 4 MG/2 ML VIAL IVP ONE (09:25)
[2019-08-15 09:40] LABS: Basophils % 0.8 %; Eosinophils # 0.1 K/mcL (0.0-0.6); Eosinophils % 1.4 %; Hematocrit 22.1 % (35.3-44.9); Immature Granulocytes % 0.2 % (0-4); Immature Platelets 10.1 % (1.1-6.1); Lymphocytes # 0.8 K/mcL (0.6-4.6); Lymphocytes % 16.3 %; Mean Corpuscular HGB Conc 27.1 g/dL (31.6-35.5); Mean Corpuscular Hemoglobin 19.4 pg (28.0-33.3); Mean Corpuscular Volume 71.5 fL (83.0-100.0); Mean Platelet Volume 11.5 fL (9.4-12.4); Monocytes # 0.3 K/mcL (0.0-1.3); Monocytes % 5.7 %; Neutrophils # 3.9 K/mcL (1.6-8.9); Platelet Count 184 K/mcL (140-400); Red Blood Count 3.09 M/mcL (3.82-4.97); Red Cell Distribution Width 17.3 % (11.5-14.5); Segmented Neutrophils % 75.6 %; White Blood Count 5.1 K/mcL (4.3-11.1)
[2019-08-15 09:54] LABS: INR 1.1; Prothrombin Time 12.5 Seconds (9.4-12.1)
[2019-08-15 09:55] LABS: Alanine Aminotransferase 9 Units/L (7-52); Albumin 4.3 g/dL (3.5-5.7); Albumin/Globulin Ratio 1.9 (1.1-2.2); Alkaline Phosphatase 121 Units/L (34-104); Aspartate Amino Transferase 12 Units/L (13-39); BUN/Creatinine Ratio 18 (6-26); Bilirubin,Total 0.5 mg/dL (0.3-1.0); Blood Urea Nitrogen 13 mg/dL (8-23); Carbon Dioxide 24 mEq/L (23-29); Chloride 105 mEq/L (98-107); Globulin 2.3 g/dL (2.4-3.5); Glucose 125 mg/dL (70-105); Osmolality,Calculated 286 (280-300); Potassium 4.2 mEq/L (3.5-5.1); Sodium 137 mEq/L (136-145); Total Protein 6.6 g/dL (6.4-8.9); eGFR For African Americans > 60 (> 60); eGFR For Non-African Americans > 60 (> 60)
[2019-08-15 10:16] LABS: Anisocytosis 1+ (Not Present); Hypochromasia Present (Not Present)
[2019-08-15 10:17] LABS: Microcytosis Present (Not Present); Platelet Estimate Normal (Normal); Polychromasia 1+ (Not Present)
[2019-08-15 10:36] LABS: Bilirubin,Urine Negative (Negative); Blood,Urine Negative (Negative); Clarity,Urine Cloudy (Clear); Color,Urine Yellow (Yellow); Glucose,Urine (UA) Normal (Normal); Ketones,Urine Negative (Negative); Leukocyte Esterase,Urine Negative (Negative); Nitrite,Urine Negative (Negative); PH,Urine 7.5 pH Units (5.0-8.0); Protein,Urine Negative (Neg-Trace); Urobilinogen,Urine Normal (Normal)
[2019-08-15 10:38] LABS: Bacteria,Urine Few per hpf (None-Few); Hyaline Casts,Urine None Seen per lpf (None-Few); RBC,Urine 0-3 per hpf (0-3); Squamous Epithelial Cell,Urine Many per lpf (None-Few)
[2019-08-15] MEDS ORDERED: Naloxone 0.4 MG/ML INJ IVP PRN (11:08)
[2019-08-15] MEDS ORDERED: Ondansetron 4 MG/2 ML VIAL IVP PRN (11:08)
[2019-08-15] MEDS ORDERED: Ipratropium/Albuterol Neb 3 ML IH PRN (11:19)
[2019-08-15] MEDS ORDERED: *HR* OxyCODONE Immed Rel 5 MG TABLET PO PRN (12:49)
[2019-08-15] MEDS: Gabapentin 400 MG CAPSULE PO SCH ×2 (13:30→20:07)
[2019-08-15] MEDS: Nicotine 14 MG PATCH.TD24 TD SCH (13:30)
[2019-08-15 14:48] LABS: Hematocrit 25.3 % (35.3-44.9); Hemoglobin 7.1 g/dL (11.5-15.4)
[2019-08-15] MEDS ORDERED: 0.9 % Sodium Chloride 250 ML ONE (15:07)
[2019-08-15] MEDS ORDERED: SODIUM CHLORIDE/NAHCO3/KCL/PEG 4,000 ML SOLN.RECON PO ONE (17:00)
[2019-08-15] MEDS: *HR* OxyCODONE Immed Rel 5 MG TABLET PO SCH (18:28)
[2019-08-15 21:25] LABS: Hematocrit 29.6 % (35.3-44.9)
[2019-08-15 21:26] LABS: Hemoglobin 8.9 g/dL (11.5-15.4)
[2019-08-16 00:53] LABS: Hemoglobin 9.5 g/dL (11.5-15.4); Immature Granulocytes % 0.5 % (0-4); Mean Corpuscular Volume 74.7 fL (83.0-100.0)
[2019-08-16 00:55] LABS: Basophils # 0.1 K/mcL (0.0-0.2); Basophils % 0.8 %; Eosinophils # 0.1 K/mcL (0.0-0.6); Eosinophils % 1.7 %; Hematocrit 31.6 % (35.3-44.9); Immature Platelets 11.3 % (1.1-6.1); Lymphocytes # 1.3 K/mcL (0.6-4.6); Lymphocytes % 22.3 %; Mean Corpuscular HGB Conc 30.1 g/dL (31.6-35.5); Mean Corpuscular Hemoglobin 22.5 pg (28.0-33.3); Mean Platelet Volume 11.4 fL (9.4-12.4); Monocytes # 0.5 K/mcL (0.0-1.3); Monocytes % 7.7 %; Platelet Count 161 K/mcL (140-400); Red Blood Count 4.23 M/mcL (3.82-4.97); Red Cell Distribution Width 19.7 % (11.5-14.5)
[2019-08-16 01:08] LABS: BUN/Creatinine Ratio 14 (6-26); Blood Urea Nitrogen 9 mg/dL (8-23); Calcium 9.1 mg/dL (8.6-10.3); Carbon Dioxide 23 mEq/L (23-29); Chloride 106 mEq/L (98-107); Glucose 86 mg/dL (70-105); Osmolality,Calculated 284 (280-300); Potassium 3.4 mEq/L (3.5-5.1); Sodium 138 mEq/L (136-145); eGFR For African Americans > 60 (> 60); eGFR For Non-African Americans > 60 (> 60)
[2019-08-16] MEDS: *HR* OxyCODONE Immed Rel 5 MG TABLET PO SCH ×3 (05:39→18:29)
[2019-08-16] MEDS: Aspirin 81 MG TAB.CHEW PO SCH (08:17)
[2019-08-16] MEDS: lisinopriL 5 MG TABLET PO SCH (08:17)
[2019-08-16] MEDS: Metoprolol XL (24 HR) Succ 50 MG TAB.ER.24H PO SCH (08:17)
[2019-08-16] MEDS: Gabapentin 400 MG CAPSULE PO SCH ×3 (08:17→20:37)
[2019-08-16] MEDS: Nicotine 14 MG PATCH.TD24 TD SCH (08:17)
[2019-08-16] MEDS: Isosorbide MONOnitrate (24 HR) 60 MG TAB.ER.24H PO SCH (08:18)
[2019-08-16] MEDS ORDERED: Nicotine 14 MG PATCH.TD24 TD SCH (09:00)
[2019-08-16] MEDS ORDERED: *HR* Etomidate 40 MG/20 ML VIAL IVP ONE (10:42)
[2019-08-16] MEDS ORDERED: *HR* Propofol 200 MG/20 ML VIAL IVP ONE ×2 (10:42→11:01)
[2019-08-16] MEDS ORDERED: Lidocaine -MPF 2% 2 ML VIAL ONE (10:46)
[2019-08-16] MEDS: 0.9 % Sodium Chloride 500 ML IVC SCH ×2 (11:33→22:12)
[2019-08-16] MEDS ORDERED: *HR* OxyCODONE Immed Rel 5 MG TABLET PO SCH (18:09)
[2019-08-17 04:48] LABS: Hemoglobin 9.4 g/dL (11.5-15.4); Immature Granulocytes % 0.2 % (0-4); Red Cell Distribution Width 20.6 % (11.5-14.5)
[2019-08-17 04:50] LABS: Basophils % 0.7 %; Eosinophils # 0.1 K/mcL (0.0-0.6); Eosinophils % 1.8 %; Immature Platelets 10.8 % (1.1-6.1); Lymphocytes # 1.3 K/mcL (0.6-4.6); Mean Corpuscular HGB Conc 29.4 g/dL (31.6-35.5); Mean Corpuscular Hemoglobin 22.4 pg (28.0-33.3); Mean Corpuscular Volume 76.2 fL (83.0-100.0); Mean Platelet Volume 11.8 fL (9.4-12.4); Monocytes # 0.4 K/mcL (0.0-1.3); Monocytes % 9.8 %; Neutrophils # 2.6 K/mcL (1.6-8.9); Platelet Count 150 K/mcL (140-400); Segmented Neutrophils % 58.5 %; White Blood Count 4.4 K/mcL (4.3-11.1)
[2019-08-17 05:04] LABS: BUN/Creatinine Ratio 15 (6-26); Blood Urea Nitrogen 10 mg/dL (8-23); Calcium 8.6 mg/dL (8.6-10.3); Carbon Dioxide 22 mEq/L (23-29); Chloride 108 mEq/L (98-107); Glucose 90 mg/dL (70-105); Osmolality,Calculated 285 (280-300); Potassium 3.8 mEq/L (3.5-5.1); Sodium 138 mEq/L (136-145); eGFR For African Americans > 60 (> 60); eGFR For Non-African Americans > 60 (> 60)
[2019-08-17] MEDS: *HR* OxyCODONE Immed Rel 5 MG TABLET PO SCH ×2 (05:47→11:53)
[2019-08-17 05:48] LABS: Hypochromasia Present (Not Present)
[2019-08-17 05:49] LABS: Anisocytosis 2+ (Not Present); Polychromasia 1+ (Not Present)
[2019-08-17] MEDS: lisinopriL 5 MG TABLET PO SCH (09:00)
[2019-08-17] MEDS: Metoprolol XL (24 HR) Succ 50 MG TAB.ER.24H PO SCH (09:00)
[2019-08-17] MEDS: Gabapentin 400 MG CAPSULE PO SCH (09:00)
[2019-08-17] MEDS: Isosorbide MONOnitrate (24 HR) 60 MG TAB.ER.24H PO SCH (09:01)
[2019-08-17] MEDS: Nicotine 14 MG PATCH.TD24 TD SCH (09:01)
[2019-08-17] MEDS: Aspirin 81 MG TAB.CHEW PO SCH (09:02)
[2019-08-17 10:52] VITALS: BP 133/80
== END 2019-08-17 13:58 | disposition home or self-care (01) | DRG 378 ==
LOC: EMEROOARM 09:00 → 3ANU 09:00 → SUATTDRO 11:08 → 3ANU 12:29
PROVIDERS: ADMIT Family Medicine; ATTEND Internal Medicine